=== PATIENT | female | born 1965 | race Caucasian/White ===

== ENCOUNTER 2024-02-15 23:06 | Observation (INO) | payer BC, SELFPAY ==
--- NOTE | ~2024-02-15 | MR_ITS ---
EXAMINATION: MR brain/brain stem wo/w con DATE: 02/16/2024 11:50 INDICATION: Cerebrovascular accident. TECHNIQUE: Magnetic resonance imaging (MRI) of the brain and brainstem was performed without and with 14 mL MultiHance intravenous contrast. COMPARISON: Head CT 02/16/2024 FINDINGS: There is no intracranial hemorrhage, acute infarction, or abnormal intracranial mass lesion . The ventricles are normal in size. The paranasal sinuses are clear. The orbits are normal. The mast oid air cells are normal. IMPRESSION: 1. Normal brain. Reviewed, dictated and finalized at location A. IMPRESSION: 1. Normal brain.
--- NOTE | ~2024-02-15 | XR_ITS ---
Clinical Indication: Dizziness PA and lateral views of the chest: Comparison: None Findings: The lungs are clear, without evidence of focal consolidation or pleural effusion. Cardiome diastinal silhouette is within normal limits. Bones and soft tissues are unremarkable. Impression: Normal chest. Reviewed, dictated and finalized at location . Impression: Normal chest.
--- NOTE | ~2024-02-15 | CT_ITS ---
CT ANGIOGRAM NECK AND HEAD History: Vertigo. Technique: Axial noncontrast imaging of the brain was performed. Serial spiral axial images through t he head and neck were then obtained during arterial phase IV injection of 100 cc of Omnipaque 350. 3- D postprocessing and MIP images were then reconstructed on the remote workstation. Dose reduction andree hnique was used on this scan by utilizing automated exposure control and iterative reconstruction andree hnique. The dose-length product (DLP) was 1684.45 mGy-cm. CTA neck findings: Bilateral vertebral arteries are patent. There is prominent calcified plaque at t he proximal left vertebral with probable focal moderate to high-grade stenosis. Bilateral common simmons tid, internal carotid, and external carotid arteries are patent. No stenosis or large vessel occlusio n. No aneurysm seen. The proximal right internal carotid artery demonstrates 0% stenosis relative to the normal distal artery lumen diameter. The proximal left internal carotid artery demonstrates 0% st enosis relative to the normal distal artery lumen diameter. 5 mm apical pulmonary nodule noted. CTA head findings: Distal vertebral arteries, basilar artery, and posterior cerebral arteries are pat ent. Distal internal carotid arteries, middle cerebral arteries, and anterior cerebral arteries are p atent. No large vessel occlusion or stenosis. No aneurysm. Axial noncontrast imaging of the brain is unremarkable. No acute infarct, intracranial hemorrhage or mass lesion seen. Velazquez-white differentiation is preserved. No mass effect or midline shift. Ventricle s and subarachnoid spaces are unremarkable. Paranasal sinuses and mastoid air cells are clear. Calvar ium intact. Impression: Calcified plaque with focal moderate to high-grade stenosis at the proximal left vertebral artery. No other significant vascular abnormality seen. 5 mm right apical pulmonary nodule. According to Fleischner Society criteria, for a low-risk patient, no further follow up required. For a high-risk patient, consider 12 month follow-up CT. Reviewed, dictated and finalized at location . Impression: Calcified plaque with focal moderate to high-grade stenosis at the proximal lef t vertebral artery. No other significant vascular abnormality seen. 5 mm right apical pulmonary nodule. According to Fleischner Society criteria, f or a low-risk patient, no further follow up required. For a high-risk patient, consider 12 month follow-up CT.
[2024-02-15 23:10] VITALS: BP 178/88; PULSE 67; RESP 17; TEMP 36.3; O2SAT 100
--- NOTE | 2024-02-15 23:13 | ECG_ITS ---
SEE SCANNED COPY FOR CONFIRMED REPORT MTDD
[2024-02-15 23:14] VITALS: PULSE 65
[2024-02-15 23:24] VITALS: BP 159/88; PULSE 66; RESP 12; O2SAT 99
--- NOTE | 2024-02-15 23:25 | ED.DIZZY ---
HPI - Dizziness General Chief Complaint: Dizziness <TREVOR May Last Filed: 02/16/24 03:38> Stated Complaint: stroke <TREVOR May Last Filed: 02/16/24 03:38> Time Seen by Provider: 02/15/24 23:15 <TREVOR May Last Filed: 02/16/24 03:38> History of Present Illness HPI Narrative: 58-year-old female with history of hypertension presents to the emergency department with family at bedside for dizziness. Patient states today around 11:00 a.m. she was doing the dishes when she began to have a spinning sensation. States it felt like she was going to pass out so she lowered herself to the floor. She did not pass out however. States this lasted a while and then self-resolved. States he later went shopping a fall fine, however when she came home she was sitting down and again and felt this overwhelming sensation of the room spinning. She states that is been going on since 3:30 p.m. today and has not resolved, therefore she has come to the ED for further evaluation. She states that this plan and does not feel like movement exacerbates factors. States she feels peg in a matter what position she is in. She states she has had similar symptoms in the past, however they have been much more mild and has not lasted this long. She reports tinnitus and hearing loss that has been present for years, she wears hearing aids. She denies fever, congestion, chest pain or shortness of breath, vision changes, focal numbness or weakness. She is reporting associated nausea, no emesis. <TREVOR May Last Filed: 02/16/24 03:38> Related Data Home Medications: Home Medications Medication Instructions Recorded Confirmed chlorthalidone 25 mg tablet 25 mg PO DAILY 02/16/24 02/16/24 losartan 100 mg tablet 100 mg PO DAILY 02/16/24 02/16/24 <TREVOR May Last Filed: 02/16/24 03:38> Allergies/Adverse Reactions: Allergies Allergy/AdvReac Type Severity Reaction Status Date / Time No Known Allergies Allergy Verified 02/15/24 23:14 <TREVOR May Last Filed: 02/16/24 03:38> Review of Systems Review of Systems: CONSTITUTIONAL: Denies fever, chills, or sweats. EYES: Denies visual changes, redness, or discharge. ENT: See HPI CARDIOVASCULAR: Denies chest pain, palpitations, or edema. RESPIRATORY: Denies cough or dyspnea. GASTROINTESTINAL: Denies abdominal pain, nausea, vomiting, or diarrhea. GENITOURINARY: Denies dysuria or hematuria. SKIN: Denies rash or itching. MUSCULOSKELETAL: Denies back pain, joint pain, or myalgia. NEUROLOGIC: See HPI PSYCHIATRIC: Denies anxiety or depression. <Shannon Mendoza PA-C - Last Filed: 02/16/24 03:38> PMFSH Social History Social History: Social History Smoking status: Never smoker Alcohol intake: never Substance use: never Substance use type: does not use Do You Feel Safe in your Home?: Yes Lack of Transportation: No Lack of Food: Never True Current Housing: I Have Housing Concerned About Future Housing: No Difficulty Paying Gas/Electric Bills: No Difficulty Paying for Meds: No Currently Unemployed: No Education: High School Diploma/GED Difficulty w/ Childcare or Family Care: No Spiritual care concerns: No <Shannon Mendoza PA-C - Last Filed: 02/16/24 03:38> Exam Narrative: GENERAL: Well-appearing, well-nourished, and in no acute distress. HEAD: Normocephalic, atraumatic. EYES: PERRLA and EOMI. Bidirectional horizontal nystagmus with both eyes ENT: Nares clear, no rhinorrhea or epistaxis. Mucous membranes moist. Oropharynx without tonsillar hypertrophy exudate or other lesions. Bilateral TMs are chapman non-bulging, normal canals. No effusions. NECK: Supple. No adenopathy or masses. CHEST: No respiratory distress. Clear to auscultation. No wheezes rales or rhonchi HEART: Regular rate and rhythm.
[2024-02-15 23:33] LABS: Basophils Absolute Auto 0.1 K/mm3 (0.0-0.1); Basophils Percent Auto 0.4 % (0.2-1.2); Eosinophils Absolute Auto 0.3 K/mm3 (0-0.3); Eosinophils Percent Auto 1.9 % (0-4.4); Hematocrit 43.4 % (37.0-47.0); Hemoglobin 14.3 g/dL (12.0-15.0); Immature Granulocyte Absolute 0.03 K/mm3 (0.00-0.031); Immature Granulocyte Percent A 0.2 % (0-0.5); Lymphocytes Absolute Auto 2.71 K/mm3 (0.9-3.2); Lymphocytes Percent Auto 19.6 % (18.3-44.2); Mean Corpuscular HGB Conc 32.9 g/dl (32-36); Mean Corpuscular Hemoglobin 30.1 pg (26-34); Mean Corpuscular Volume 91.4 fl (80-100); Mean Platelet Volume 10.2 fl (7.4-10.4); Monocytes Absolute Auto 0.8 K/mm3 (0.1-0.6); Monocytes Percent Auto 5.4 % (2.6-8.5); Neutrophils Percent Auto 72.5 % (45.5-73.1); Platelet Count Result 192 k/mm3 (150-375); Red Blood Count 4.75 M/mm3 (4.2-5.4); Red Cell Distribution Width 12.7 % (11.5-14.5); White Blood Count 13.8 K/mm3 (4.5-10.0)
[2024-02-15] MEDS: MECLIZINE HCL 25 MG TABLET PO (23:41)
[2024-02-15] MEDS: ONDANSETRON INJ 4 MG/2 ML VIAL IV PUSH (23:41)
[2024-02-15] MEDS: SODIUM CHLORIDE 0.9% IV 1,000 ML 999 ML IV CONT (23:41)
[2024-02-15 23:45] LABS: Alanine Aminotransferase 25 U/L (6-35); Albumin Level 4.5 g/dL (3.5-5.1); Alkaline Phosphatase 121 U/L (38-126); Anion Gap 6 mmol/L (4-12); Aspartate Amino Transferase 33 U/L (14-36); Bilirubin,Total 0.6 mg/dL (0.2-1.3); Blood Urea Nitrogen 28 mg/dL (7-17); Calcium 9.2 mg/dL (8.4-10.2); Carbon Dioxide 29 mmol/L (22-30); Chloride 103 mmol/L (98-107); Estimated CRCL calculation 71 ml/min; Estimated Glomerular Filt Rate > 60; Glucose 121 mg/dL (65-110); Magnesium 2.2 mg/dL (1.6-2.3); Potassium 3.3 mmol/L (3.4-5.0); Sodium 138 mmol/L (137-145)
[2024-02-15 23:50] LABS: Partial Thromboplastin Time 28.2 Seconds (22.3-36.8); Prothrombin Time 13.6 Seconds (11.1-14.7)
[2024-02-15] MEDS: POTASSIUM CHLORIDE 20 MEQ PACKET (FOR LIQUID) PO (23:53)
[2024-02-15 23:59] VITALS: BP 157/86; PULSE 71; RESP 14; O2SAT 98
[2024-02-16] VITALS (12 sets, daily range): BP systolic 123–145; BP diastolic 62–84; PULSE 55–81; RESP 13–18; TEMP 36.4–36.8; O2SAT 96–100; BMI 24.3
--- NOTE | 2024-02-16 | ECHO_ITS ---
Patient Info Name: Sanna Watters Age: 58 years : 1965 Gender: Female HR: 67 bpm BP: 137 / 80 mmHg Heart Rhythm: Sinus Rhythm Technical Quality: Fair Exam Date: 02/16/2024 9:25 AM Exam Location: Echo Lab Patient Status: Inpatient Admit Date: 02/16/2024 Staff Ordering Physician: Quinn Sweet MD Application Counselor: Paolo Mills [facility] Attending Provider: Elsy Browne DO Exam Type: CA echo doppler w bubble study Study Info Indications R55 - Syncope and collapse Complete two-dimensional, color flow and Doppler transthoracic echocardiogram is performed with agitated saline. Contrast/Agitated Saline Contrast/Ag. Saline: Agitated Saline Amount: 14.00 ml IV Access Condition: patent with no signs of infiltration Summary 1. Left ventricular chamber dimension is normal. 2. Left ventricular systolic function is normal, estimated at 65-70%. 3. The left ventricular diastolic function is grade I diastolic dysfunction. 4. Right ventricular systolic function is normal. 5. Intact interatrial septum visualized by color flow and agitated saline imaging. Negative bubble study. 6. No significant valvular disease. Left Ventricle Left ventricular chamber dimension is normal. Left ventricular systolic function is normal, estimated at 65-70%. There is no increased left ventricular wall thickness. The left ventricular diastolic function is grade I diastolic dysfunction. Right Ventricle Right ventricular chamber dimension is normal. Right ventricular systolic function is normal. Left Atria Left atrial chamber dimension is normal. Right Atria Right atrial chamber dimension is normal. Atrial Septum Intact interatrial septum visualized by color flow and agitated saline imaging. Negative bubble study. Aortic Valve The aortic valve is trileaflet. There is no aortic valve stenosis. There is no aortic valve regurgitation. Pulmonic Valve The pulmonic valve is not well visualized. There is trace pulmonic regurgitation. Mitral Valve There is trace mitral valve regurgitation. Tricuspid Valve There is trace tricuspid valve regurgitation. Pericardium/Pleural There is no pericardial effusion. Inferior Vena Cava Normal inferior vena cava with >50% collapse upon inspiration consistent with normal right atrial pressure, 3 mmHg. Aorta The aortic root size at the sinus of Valsalva is normal. Left Ventricular Outflow Tract Name Value Normal LVOT 2D LVOT Diameter 2.1 cm LVOT Doppler LVOT Peak Gradient 5 mmHg LVOT Mean Gradient 3 mmHg LVOT VTI 25 cm LVOT VTI/AV VTI Ratio 0.8 LVOT Stroke Volume 90 ml LVOT CO 5.7 l/min Pulmonic Valve Name Value Normal RVOT Doppler RVOT Peak Gradient 2 mmHg PV Doppler
[2024-02-16 00:20] LABS: Troponin I < 0.012 ng/mL (0.000-0.034)
[2024-02-16] MEDS: diazePAM INJ (*CRX) 10 MG/2 ML SYRINGE 5 MG IV PUSH (01:07)
--- NOTE | 2024-02-16 02:19 | PC.NURSE ---
Patient states she does not feel nauseous and declined Metoclopramide.
[2024-02-16 02:28] LABS: Appearance Urine Clear (Clear); Bacteria Urine None Seen /hpf; Bilirubin Urine Negative (Negative); Blood Urine Negative (Negative); Color Urine Yellow (Yellow); Glucose Urine UA Negative (Negative); Ketones Urine Negative (Negative); Leukocyte Esterase Ur Trace LEU/UL (Negative); Nitrate Urine Negative (Negative); Non Pathogenic Casts 0-2; Protein Urine Negative (Negative); RBC Urine 0-2 /hpf (0-2); Squamous Epithelial Cell Urine None Seen /hpf (Few); Urobilinogen Urine 0.2 mg/dL (<2.0); WBC Urine 0-5 /hpf (0-3)
[2024-02-16 02:35] LABS: Add Urine Microscopic? YES
[2024-02-16] MEDS: ASPIRIN 81 MG CHEWABLE TABLET 324 MG PO (03:43)
[2024-02-16 08:21] LABS: Basophils Percent Auto 0.5 % (0.2-1.2); Eosinophils Absolute Auto 0.3 K/mm3 (0-0.3); Eosinophils Percent Auto 3.4 % (0-4.4); Hematocrit 41.2 % (37.0-47.0); Hemoglobin 13.5 g/dL (12.0-15.0); Immature Granulocyte Absolute 0.01 K/mm3 (0.00-0.031); Immature Granulocyte Percent A 0.1 % (0-0.5); Lymphocytes Absolute Auto 2.61 K/mm3 (0.9-3.2); Lymphocytes Percent Auto 32.7 % (18.3-44.2); Mean Corpuscular HGB Conc 32.8 g/dl (32-36); Mean Corpuscular Hemoglobin 30.3 pg (26-34); Mean Corpuscular Volume 92.4 fl (80-100); Mean Platelet Volume 9.6 fl (7.4-10.4); Monocytes Absolute Auto 0.4 K/mm3 (0.1-0.6); Monocytes Percent Auto 5.4 % (2.6-8.5); Neutrophils Absolute Auto 4.6 K/mm3 (1.3-6.7); Neutrophils Percent Auto 57.9 % (45.5-73.1); Platelet Count Result 179 k/mm3 (150-375); Red Blood Count 4.46 M/mm3 (4.2-5.4); Red Cell Distribution Width 12.7 % (11.5-14.5)
[2024-02-16 08:33] LABS: Anion Gap 4 mmol/L (4-12); Blood Urea Nitrogen 20 mg/dL (7-17); Calcium 9.2 mg/dL (8.4-10.2); Carbon Dioxide 30 mmol/L (22-30); Chloride 106 mmol/L (98-107); Cholesterol 220 mg/dL (0-200); Estimated CRCL calculation 71 ml/min; Estimated Glomerular Filt Rate > 60; Glucose 95 mg/dL (65-110); HDL Direct 83 mg/dL; Potassium 3.7 mmol/L (3.4-5.0); Sodium 140 mmol/L (137-145); Triglycerides 45 mg/dL (<150)
[2024-02-16] MEDS: ASPIRIN 81 MG CHEWABLE TABLET PO (08:39)
[2024-02-16] MEDS: ATORVASTATIN 40 MG TABLET PO (08:39)
[2024-02-16 08:45] LABS: LDL Cholesterol Direct 103 mg/dL
[2024-02-16 08:53] LABS: Vitamin D 25 Hydroxy 32.4 ng/mL
[2024-02-16 09:06] LABS: Thyroid Stimulating Hormone Reflex 0.841 uIU/mL (0.465-4.68)
[2024-02-16 09:27] LABS: Hemoglobin A1C 5.4 % (<5.7)
[2024-02-16 09:28] LABS: Amphetamine Screen Urine Negative (Negative); Barbiturate Screen Urine Negative (Negative); Benzodiazepines Screen Urine Negative (Negative); Cannabinoid Screen Urine Negative (Negative); Cocaine Screen Urine Negative (Negative); Methadone Screen Urine Negative (Negative); Opiate Screen Urine Negative (Negative); Phencyclidine Screen Urine Negative (Negative)
[2024-02-16 09:39] LABS: Folic Acid > 20.0 ng/mL (2.76->20)
--- NOTE | 2024-02-16 11:05 | PM.IMHP ---
H&P: HPI History of Present Illness Date/Time: 02/16/24 11:05 Chief Complaint: Dizziness Narrative: 58yo female with HTN here for dizziness. On the morning of admission while doing dishes, patient had sudden onset room spinning dizziness. She had nausea. She denies fever, chills, headaches, chest pain, palpitations, shortness of breath, cough, vomiting, diarrhea, abdominal pain or vision changes. She has chronic hearing loss and chronic tinnitus but no change. She does wear hearing aids. No dysuria or hematuria. No numbness, tingling or weakness in her extremities. His symptoms lasted about 15 minutes before resolving on their own. She did not take any medications or try any maneuvers to improve her symptoms. She felt tired but was able to go shopping. When she returned home later in the afternoon, she had another onset of dizziness while sitting on the couch. She states the symptoms were identical to the morning symptoms and had recurrent nausea but no other associated symptoms otherwise. Symptoms persisted this time. She took Benadryl without benefit. There has been no new [id number] medications. No new prescription medications. She really drinks alcohol. She is a nonsmoker. No drug use. No history of seizures, strokes, coronary disease, thyroid disease or diabetes. Symptoms are persistent but do seem to improve if she closes her eyes. She can walk but is unsteady. Because of the persistent symptoms, she presented to the emergency room for evaluation. In the emergency room, she was hemodynamically stable. Blood pressure was 178/88. White count was 13.8K but CBC otherwise was normal. PT and PTT were normal. Potassium 3.3, BUN 28 and glucose 121 otherwise CMP was normal. Troponin was negative. Urinalysis was not consistent with UTI. She is given meclizine, Zofran, Valium and aspirin. She was given IV fluids and potassium was replaced. She was admitted for further care. Her symptoms are persistent but lessened since treatment in the ED. Review of Systems Review of Systems: All systems reviewed & are unremarkable except as noted in HPI and below PMFSH Past Medical History Medical History (Updated 02/16/24 @ 11:31 by Quinn Sweet MD) Essential hypertension Hearing loss Migraine Tinnitus Surgical History Surgical History (Updated 02/16/24 @ 11:14 by Quinn Sweet MD) Hx of hand surgery Family History Family History (Updated 02/16/24 @ 11:14 by Quinn Sweet MD) Mother Heart disease Father Cerebrovascular accident Social History Social History (Updated 02/16/24 @ 11:15 by Quinn Sweet MD) Social History: Lifelong nonsmoker. No history of drug use. Rarely drinks alcohol. Lives with her and son. They have a dog. She is full code. She nominates her to be the individual who would make medical decisions for her if she is unable. Smoking status: Never smoker Alcohol intake: never Substance use: never Substance use type: does not use Do You Feel Safe in your Home?: Yes Lack of Transportation: No Lack of Food: Never True Current Housing: I Have Housing Concerned About Future Housing: No Difficulty Paying Gas/Electric Bills: No Difficulty Paying for Meds: No Currently Unemployed: No Education: High School Diploma/GED Difficulty w/ Childcare or Family Care: No Spiritual care concerns: No Meds Home Medications and Allergies Home Medications Medication Instructions Recorded Confirmed Type chlorthalidone 25 mg tablet 25 mg PO DAILY 02/16/24 02/16/24 History losartan 100 mg tablet 100 mg PO DAILY 02/16/24 02/16/24 History Allergies Allergy/AdvReac Type Severity Reaction Status Date / Time No Known Allergies Allergy Verified 02/15/24 23:14 Vital Signs Vital Signs - 24 hr 02/15/24 23:10 02/15/24 23:14 02/15/24 23:24 Temperature 97.4 F L Pulse Rate 67 65 66 Respiratory Rate 17 12 Blood Press
[2024-02-16] MEDS: MECLIZINE HCL 12.5 MG TABLET PO ×2 (16:45→20:47)
[2024-02-17] VITALS (7 sets, daily range): BP systolic 122–141; BP diastolic 60–76; PULSE 56–68; RESP 12–14; TEMP 36.1–36.6; O2SAT 100
[2024-02-17] MEDS: MECLIZINE HCL 12.5 MG TABLET PO ×3 (09:11→17:50)
[2024-02-17] MEDS: ATORVASTATIN 40 MG TABLET PO (09:12)
[2024-02-17] MEDS: ASPIRIN 81 MG CHEWABLE TABLET PO (09:12)
--- NOTE | 2024-02-17 11:02 | WPDNEURCNPN ---
Assessment and Plan Assessment and plan (1) Vertebral artery narrowing: Code(s): I65.09 - Occlusion and stenosis of unspecified vertebral artery Status: Acute (2) TIA (transient ischemic attack): Code(s): G45.9 - Transient cerebral ischemic attack, unspecified Status: Acute Plan recurrent complaints of dizziness and impending sensation of passing out, on clinical examination horizontal endpoint nystagmus on looking to the left side, CTA of the brain with calcified plaque and focal moderate to high-grade stenosis of the proximal left vertebral artery suggesting the posterior circulation involvement even though her MRI is negative for acute stroke. She will benefit from the vascular consult at this particular time she can be started on aspirin and Plavix I discussed with the patient. Consult date: 02/17/24 HPI: Sanna Watters is a 58 year old female Admitted to the hospital through the emergency room with ongoing history of hypertension and he complains of dizziness starting around 11:00 a.m. when she was doing her dishes and developed sudden spinning sensation as she was going to pass out however she did not the whole episode lasted for a while and resolved by itself subsequently when she came from outside and was sitting down she again felt overwhelming sensation of the room spinning and continued to have the sensation with no resolution resulting in her coming to the ER she has had the similar symptoms in the past along with the tinnitus and hearing loss of several years duration she gave no history of any acute symptomatology. Her medications included chlorthalidone 25mg daily, losartan 100mg daily, she is not allergic to any medications, she has never smoker never alcohol user and her initial exam in the emergency room was nonfocal with normal vital signs, normal CBC except WBC 13.8 normal BMP with potassium 3.3, subsequently had the brain MRI brain which was negative. She has had the CTA of the brain while in the ER which has documented the calcified plaque and focal moderate to high-grade stenosis at the proximal left vertebral artery with 5mm right apical pulmonary nodule PMFSH Past Medical History Medical History (Updated 02/17/24 @ 11:11 by Jose Antonio Bear MD) Essential hypertension Hearing loss Migraine Tinnitus Surgical History Surgical History (Updated 02/16/24 @ 11:14 by Quinn Sweet MD) Hx of hand surgery Family History Family History (Updated 02/16/24 @ 11:14 by Quinn Sweet MD) Mother Heart disease Father Cerebrovascular accident Social History Social History (Updated 02/16/24 @ 11:15 by Quinn Sweet MD) Social History: Lifelong nonsmoker. No history of drug use. Rarely drinks alcohol. Lives with her and son. They have a dog. She is full code. She nominates her to be the individual who would make medical decisions for her if she is unable. Smoking status: Never smoker Alcohol intake: never Substance use: never Substance use type: does not use Do You Feel Safe in your Home?: Yes Lack of Transportation: No Lack of Food: Never True Current Housing: I Have Housing Concerned About Future Housing: No Difficulty Paying Gas/Electric Bills: No Difficulty Paying for Meds: No Currently Unemployed: No Education: High School Diploma/GED Difficulty w/ Childcare or Family Care: No Spiritual care concerns: No Meds Home Medications and Allergies Home Medications Medication Instructions Recorded Confirmed Type chlorthalidone 25 mg tablet 25 mg PO DAILY 02/16/24 02/16/24 History losartan 100 mg tablet 100 mg PO DAILY 02/16/24 02/16/24 History Allergies Allergy/AdvReac Type Severity Reaction Status Date / Time No Known Allergies Allergy Verified 02/15/24 23:14 Vital Signs Vital Signs - 24 hr 02/16/24 13:14 02/16/24 13:41 02/16/24 14:00 Temperature 36.7 C Pulse Rate 78 Respiratory Rate 18
[2024-02-17] MEDS: CLOPIDOGREL BISULFATE 75 MG TABLET PO (13:32)
--- NOTE | 2024-02-17 17:16 | PM.DS ---
DS: Admitting Diagnosis Discharge Date February 17, 2024 Admitting Diagnosis Dizziness and room spinning DS: Discharge Diagnosis Discharge Diagnosis (1) Vertigo: Code(s): R42 - Dizziness and giddiness Status: Acute (2) Pulmonary nodule: Code(s): R91.1 - Solitary pulmonary nodule Status: Acute (3) Essential hypertension: Code(s): I10 - Essential (primary) hypertension Status: Acute (4) Vertebral artery narrowing: Code(s): I65.09 - Occlusion and stenosis of unspecified vertebral artery Status: Acute (5) TIA (transient ischemic attack): Code(s): G45.9 - Transient cerebral ischemic attack, unspecified Status: Acute DS: Summary Hospital Course Hospital Course: 58-year-old female with a past medical history dizziness and longstanding tinnitus. He reports the room spinning and dizziness while doing dishes associated with nausea but no vomiting. She denied fever chills headaches chest pain palpitation shortness of breath cough vomiting diarrhea sick contacts abdominal pain or vision changes. Tinnitus was not worse than usual. Symptoms lasted approximately 15 minutes. Again later in the day while sitting on the couch. She took Benadryl without benefit. The patient presented to [facility] and a CT of head was negative as well as MRI brain. A CTA of head and neck did demonstrate calcified plaque at proximal left vertebral artery with probable focal moderate to high-grade stenosis. She was administered Valium aspirin and Zofran and meclizine and she felt that her symptoms greatly resolved. Subsequently she was placed on aspirin Plavix and Lipitor. Dr. Oseguera neurology at [facility] notified and he recommended the patient could be transferred for further evaluation or follow-up in the office. Patient presented these options and she refuse transfer. She has been educated on the importance of taking aspirin and Plavix every day. Per the recommendations of Dr. Oseguera we have also increased her atorvastatin to 80 mg q.h.s.. He is advised to seek out care at neurosurgery center such as [facility] if she has recurrence of symptoms or new symptoms of stroke which she was educated about. Adverse effects, risks, benefits of medications discussed to which the patient understood and agreed to the above plan. She also knows to follow up with her PCP on these matters as well as a pulmonary nodule incidentally found. She has been furnished with the number to Dr. Oseguera/Dr. Darling office so she can call to make an appointment for outpatient follow-up. Acute hypokalemia is replaced and resolved. Home medications losartan and chlorthalidone resumed and repeat BMP magnesium order for 3 days. He also has outpatient therapy ordered. She was also prescribed meclizine to use for mild vertigo symptoms p.r.n.. Time Spent with Patient Time attestation: Total time spent providing and/or coordinating discharge services: Exam Const: General: comfortable and no acute distress Eyes: Pupils: Equal, round and reactive pupils present Neck: Neck: supple Resp: Effort & Inspection: normal respiratory effort Auscultation: clear to auscultation bilaterally Cardio: Rate: regular rate Rhythm: regular rhythm GI: GI Palp: Yes Soft to palpation and No Tenderness to palpation present (GI) Neuro: Motor exam (neuro): 5/5 motor strength present throughout Other: Horizontal nystagmus on left gaze Extrem: General: no edema Discharge Plan Discharge Attending physician on discharge: Zoila Avalos Consulting providers: Johnathan Camara; Shannon Mendoza Discharging Clinician: Zoila Avalos Anticipated Discharge Date/Time: 02/17/24 17:00 Patient Disposition: Home, Self-Care Activity: january shower Diet: as tolerated Discharge Instructions: call to schedule appt with Dr. Darling of [facility] group at [phone] as discussed, if you experience recurrence of sympt
== END 2024-02-17 18:00 | disposition home or self-care (01) ==
LOC: ANHED 02-16 03:01 → ANH3MEDSUR 02-16 14:35
PROVIDERS: Internal Medicine; Student in an Organized Health Care Education/Training Program; Admitting Provider Internal Medicine; Emergency Provider Physician Assistant; PCP Internal Medicine; Visit Provider General Practice
DX: G45.9 Transient cerebral ischemic attack, unspecified (principal); R91.1 Solitary pulmonary nodule; I10 Essential (primary) hypertension; Z79.899 Other long term (current) drug therapy
CPT/HCPCS: 36415; 70496; 70498; 70553; 71046; 80048; 80053; 80061; 80307; 81001; 82306; 82607; 82746; 83036; 83735; 84443; 84484; 85025; 85610; 85730; 93005; 93306; 96361; 96374; 96375; 97161; 97165; 99285; A9270; A9577; G0378; J2405; J3360; J7030; Q9967

== ENCOUNTER 2024-09-16 14:20 | Outpatient (CLI) | payer BC, SELFPAY ==
--- NOTE | ~2024-09-16 | XR_ITS ---
[id number] Ordering provider: Rigo Galindo, History: . RADICULOPATHY . Comparison: None. FINDINGS: VERTEBRAL BODIES: Normal height and alignment. No visible fracture or subluxation. The dens is intact . Degenerative changes of the spine. 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 DISK SPACES: Narrowing of the disc C4-C5, C5-C6, C6-C7 and C7-T1. Multilevel uncovertebral joint oste oarthritic changes. Multilevel facet joint disease. PARASPINOUS SOFT TISSUES: No prevertebral soft tissue swelling. IMPRESSION: No acute osseous abnormality cervical spine. Multilevel degenerative disc disease. Reviewed, dictated and finalized at location A. [employer]
== END 2024-09-16 14:21 | disposition home or self-care (01) ==
PROVIDERS: PCP Internal Medicine; Visit Provider Internal Medicine
DX: M54.12 Radiculopathy, cervical region (principal); M50.30 Other cervical disc degeneration, unspecified cervical region
CPT/HCPCS: 72040

== ENCOUNTER 2024-09-20 01:26 | Emergency (ER) | payer BC, SELFPAY ==
[2024-09-20] VITALS (7 sets, daily range): BP systolic 109–146; BP diastolic 68–74; PULSE 64–86; RESP 13–20; TEMP 36.3–36.4; O2SAT 97–100
--- NOTE | ~2024-09-20 | CT_ITS ---
Non-contrast CT scan of the Abdomen and Pelvis Clinical indication: Flank pain, back pain Technique: 2.5 mm axial scans were obtained through the abdomen and pelvis without intravenous or or al contrast. Axial imaging of the lumbar spine was also performed with sagittal and coronal reformats . Dose reduction technique was used on this scan by utilizing automated exposure control and iterativ e reconstruction technique. The dose-length product (DLP) was 380.79 mGy-cm. Abdomen/pelvis Findings: Images through the lung bases reveal no abnormalities. There is no evidence of renal or ureteral calculi. The kidneys and the ureters are nondilated. Probab le small hyperdense left renal cyst. The liver, spleen, pancreas, gallbladder, and adrenals appear normal. There is no aortic aneurysm. There is no evidence of bowel obstruction. Images through the pelvis were performed. There is no evidence of ascites or lymphadenopathy. Urinary bladder unremarkable. No pelvic mass seen. Lumbar spine findings: There is no acute fracture or subluxation of lumbar spine. Vertebral bodies ma intain normal height and alignment. Intervertebral disc spaces are relatively well-preserved. There are probable mild disc bulges at L2-L3, L3-L4, and L4-L5. No definite canal stenosis identified in the lumbar spine. Probable mild bilateral neural foraminal narrowing at L3-L4. Paravertebral soft tissues are unremarkable.. Impression: No acute abnormalities seen. Probable mild degenerative spondylosis of lumbar spine, as above. Reviewed, dictated and finalized at [facility]. E SUBSTANCE ABUSE Impression: No acute abnormalities seen. Probable mild degenerative spondylosis of lumbar spine, as above.
[2024-09-20 01:46] LABS: Basophils Percent Auto 0.3 % (0.2-1.2); Eosinophils Absolute Auto 0.1 K/mm3 (0-0.3); Eosinophils Percent Auto 0.7 % (0-4.4); Hematocrit 44.1 % (37.0-47.0); Hemoglobin 14.7 g/dL (12.0-15.0); Immature Granulocyte Absolute 0.02 K/mm3 (0.00-0.031); Immature Granulocyte Percent A 0.3 % (0-0.5); Lymphocytes Absolute Auto 1.51 K/mm3 (0.9-3.2); Lymphocytes Percent Auto 19.9 % (18.3-44.2); Mean Corpuscular HGB Conc 33.3 g/dl (32-36); Mean Corpuscular Hemoglobin 30.2 pg (26-34); Mean Corpuscular Volume 90.6 fl (80-100); Mean Platelet Volume 9.8 fl (7.4-10.4); Monocytes Absolute Auto 0.9 K/mm3 (0.1-0.6); Monocytes Percent Auto 11.2 % (2.6-8.5); Neutrophils Absolute Auto 5.2 K/mm3 (1.3-6.7); Neutrophils Percent Auto 67.6 % (45.5-73.1); Platelet Count Result 177 k/mm3 (150-375); Red Blood Count 4.87 M/mm3 (4.2-5.4); Red Cell Distribution Width 13.1 % (11.5-14.5); White Blood Count 7.6 K/mm3 (4.5-10.0)
[2024-09-20 01:58] LABS: Alanine Aminotransferase 46 U/L (6-35); Albumin Level 4.3 g/dL (3.5-5.1); Alkaline Phosphatase 115 U/L (38-126); Anion Gap 7 mmol/L (4-12); Aspartate Amino Transferase 42 U/L (14-36); Bilirubin,Total 0.6 mg/dL (0.2-1.3); Blood Urea Nitrogen 22 mg/dL (7-17); Calcium 9.4 mg/dL (8.4-10.2); Carbon Dioxide 30 mmol/L (22-30); Chloride 97 mmol/L (98-107); Estimated CRCL calculation 62 ml/min; Estimated Glomerular Filt Rate > 60; Glucose 146 mg/dL (65-110); Lipase 104 U/L (23-300); Sodium 134 mmol/L (137-145)
--- NOTE | 2024-09-20 07:51 | ED.BACK ---
HPI - Back Pain/Injury General Chief Complaint: Back Pain/Injury Stated Complaint: back pain and right flank x 2 days Time Seen by Provider: 09/20/24 07:05 Source: patient and RN notes reviewed Mode of arrival: EMS History of Present Illness HPI Narrative: Patient presents initially with report of back/right sided flank pain. She states the pain is worse when she uses her right leg but it otherwise doesn't radiate from her low back. Ibuprofen is not helping. No bladder/bowel incontinence or IV drug use. She felt nauseated with the pain but no vomiting. She thought initially that perhaps she pulled a muscle but she doesn't believe that is the case now. Pain started while seated in a chair 2 days ago. 6/10 in severity. Had acute onset stabbing pain but 2/10 pain at rest. No trauma/injury, dysuria, abdominal pain, cancer, chronic steroids, or fever. No hematuria. She attemptd to get into the bath but pain was too intense and so she laid on the floor. No history of UTI/pyelonephritis, or urolithiasis. No paresthesias. Related Data Home Medications ?Medication ?Instructions ?Recorded ?Confirmed ?Last Taken ?Type chlorthalidone 25 mg tablet 25 mg PO DAILY 02/16/24 02/16/24 Unknown History losartan 100 mg tablet 100 mg PO DAILY 02/16/24 02/16/24 Unknown History Allergies Allergy/AdvReac Type Severity Reaction Status Date / Time No Known Allergies Allergy Verified 02/15/24 23:14 [facility] Past Medical History Medical History Tinnitus Hearing loss Migraine Essential hypertension Surgical History Surgical History Hx of hand surgery Family History Family History (Updated 02/16/24 @ 11:14 by Quinn Sweet MD) Mother Heart disease Father Cerebrovascular accident Social History Social History (Updated 09/20/24 @ 21:33 by Christina You MD) Social History: They have a dog. She is full code. She nominates her to be the individual who would make medical decisions for her if she is unable. Smoking status: Never smoker Alcohol intake: current Alcohol use details: rare Substance use: never Substance use type: does not use Other substance usage details: denies IVDU Do You Feel Safe in your Home?: Yes Lack of Transportation: No Lack of Food: Never True Current Housing: I Have Housing Concerned About Future Housing: No Difficulty Paying Gas/Electric Bills: No Difficulty Paying for Meds: No Currently Unemployed: No Education: High School Diploma/GED Difficulty w/ Childcare or Family Care: No Living arrangements: with family Additional living arrangements comments: Lives with her and son. Spiritual care concerns: No Exam Narrative: GENERAL: Well-appearing, well-nourished, in moderate acute distress during physical exam/movement. Otherwise laying flat on stretcher. HEAD: Normocephalic, atraumatic. EYES: Non injected, non icteric ENT: Nares clear, no rhinorrhea or epistaxis. NECK: Supple. CHEST: Speaking in full sentences. No respiratory distress. HEART: Regular rate and rhythm. . ABDOMEN: Soft, nondistended. EXTREMITIES: No lower extremity edema. Able to move extremities x4 but limited secondary to pain. Straight leg test positive on the right. BACK: Patient able to demonstrate ability to roll onto right side. Mild left paraspinal tenderness at lumbar spine. No bony stepoffs/deformities. SKIN: Warm, dry, no rash. NEURO: No focal deficits. Alert and oriented x3. Sensation intact to gross touch PSYCH: Congruent mood and affect. Course Vital Signs Vital signs: Vital Signs Temperature 97.3 F L 09/20/24 01:27 Pulse Rate 84 09/20/24 01:27 Respiratory Rate 16 09/20/24 01:27 Blood Pressure 118/74 09/20/24 01:27 Pulse Oximetry 99 09/20/24 01:27 Oxygen Delivery Room Air 09/20/24 01:27 Temperature 97.6 F 09/20/24 05:34 Pulse Rate 71 09/20/24 14:50 Respiratory Rate 13 09/20/24 14:50 Blood Pressure 109/74 09/20/24 14:50 Pulse Oximetry 98 09/20/24 14:50 Oxygen Delivery Room Air 09/20/24 01:27 MDM - Back Pain/Injury MDM Narrative Medical decision making narrative: Patient presents intiially with report of back/right flank pain. On exam she does seem to indicate the pain is more left paraspinal and that it otherwise does not radiate but is worsened by movement of her right leg. In the emergency department they are afebrile with vital signs within normal limits. CBC unremarkable. Hyperglycemia without anion gap acidosis. Mild elevations in AST ALT. Sodium corrects slightly to 135 mEq per L in the setting of hyperglycemia. Patient is hypokalemic a potassium at 3.0. Will replete with both oral and IV formulations and obtain magnesium level to see if there is concomitant hypomagnesemia. Back has no deformities, external skin changes, or signs of trauma. No tenderness is noted on palpation of the spinous processes which are midline. Sensation to the lower extremities is normal bilaterally. They do not have any other red flags for fracture, infection (e.g. spinal epidural abscess), or aortic/vascular: Age, no trauma, not on chronic steroids, no cancer, no fever, IV drug use, immunosuppression, abdominal pain, tearing pain, syncope, or urinary symptoms. Straight leg raise test is positive on the right however. Given this, will proceed with imaging at this time. UA without signs of infection. PVR was obtained but it was delayed after the urine was collected which was a quick straight cath insertion given the patient missed the cup while attempting to collect a sample herself earlier during ED visit. No other high risk features to suggest cord compression at this time (no incontinence of bowel or bladder, saddle anesthesia, paresthesias, etc.). Patient given analgesic medication and she does note that it helps although she notes that pain remains present when attempting to move. Given additional analgesic medication and we discussed the role and improtance of multimodal pain management for symptoms to balance rest with maintaining ADLs and performing stretching/strengthening exercises. Will discharge and advised to follow up with PCP and given ED return precautions. Provided Rx for APAP, NSAID, muscle relaxer and topical lidocaine patch. Differential Diagnosis Differential diagnosis: Likely lumbar radiculopathy, sciatica, strain of lumbar region, renal colic, pyelonephritis and discitis Lab Data Attestation: I reviewed the patient's lab results. 09/20/24 01:39 09/20/24 01:39 Labs: Lab Results 09/20/24 09/20/24 09/20/24 Range/Units 01:30 01:39 09:04 WBC 7.6 (4.5-10.0) K/mm3 RBC 4.87 (4.2-5.4) M/mm3 Hgb 14.7 (12.0-15.0) g/dL Hct 44.1 (37.0-47.0) % MCV 90.6 (80-100) fl MCH 30.2 (26-34) pg MCHC 33.3 (32-36) g/dl RDW 13.1 (11.5-14.5) % Plt Count 177 (150-375) k/mm3 MPV 9.8 (7.4-10.4) fl Immature Gran % (Auto) 0.3 (0-0.5) % Neut % (Auto) 67.6 (45.5-73.1) % Lymph % (Auto) 19.9 (18.3-44.2) % Fountain % (Auto) 11.2 H (2.6-8.5) % Eos % (Auto) 0.7 (0-4.4) % Baso % (Auto) 0.3 (0.2-1.2) % Lymph # (Auto) 1.51 (0.9-3.2) K/mm3 Fountain # (Auto) 0.9 H (0.1-0.6) K/mm3 Eos # (Auto) 0.1 (0-0.3) K/mm3 Baso # (Auto) 0.0 (0.0-0.1) K/mm3 Abs Immat Gran (auto) 0.02 (0.00-0.031) K/mm3 Absolute Neuts (auto) 5.2 (1.3-6.7) K/mm3 Absolute Nucleated RBC 0.000 (0.0-0.012) K/mm3 Nucleated RBC % 0.0 (0.0-0.2) % Sodium 134 L (137-145) mmol/L Potassium 3.0 L (3.4-5.0) mmol/L Chloride 97 L (98-107) mmol/L Carbon Dioxide 30 (22-30) mmol/L Anion Gap 7 (4-12) mmol/L BUN 22 H (7-17) mg/dL Creatinine 0.80 (0.7-1.0) mg/dL Estim Creat Clear Calc 62 ml/min Estimated GFR > 60 (59 - ) Glucose 146 H (65-110) mg/dL Calcium 9.4 (8.4-10.2) mg/dL Magnesium 1.9 (1.6-2.3) mg/dL Total Bilirubin 0.6 (0.2-1.3) mg/dL AST 42 H (14-36) U/L ALT 46 H (6-35) U/L Alkaline Phosphatase 115 (38-126) U/L Total Protein 8.0 (6.3-8.2) g/dL Albumin 4.3 (3.5-5.1) g/dL Lipase 104 (23-300) U/L Urine Color Yellow (Yellow) Urine Appearance Clear (Clear) Urine pH 6.5 (5.0-9.0) Ur Specific Wilson 1.016 (1.001-1.035) Urine Protein Negative (Negative) mg/dL Urine Glucose (UA) Negative (Negative) mg/dL Urine Ketones Negative (Negative) mg/dL Ur Blood (Man) Negative (Negative) Urine Nitrate Negative (Negative) Urine Bilirubin Negative (Negative) Urine Urobilinogen 1.0 (<2.0) mg/dL Leukocyte Esterase Rfl Negative (Negative) EN/UL Imaging Data Radiologist's impression: Impressions Miscellaneous CT Procedure 09/20/24 08:37 Impression: No acute abnormalities seen. Probable mild degenerative spondylosis of lumbar spine, as above. Discharge Plan Discharge Clinical Impression: Right flank pain, Hyperglycemia, Elevated SGOT (AST), ALT (SGPT) level raised, Hypokalemia, Spondylosis of lumbar spine, Low back pain Patient Disposition: Home, Self-Care Condition: Stable Instructions: Antibiotic Form, Hypokalemia (ED), Acute Low Back Pain (ED), Flank Pain (ED), Lower Back Exercises (ED), Transaminitis (ED) Additional Instructions: As we discussed, the multimodal pain management strategy is to help you balance rest with maintaining daily activities and movement including the ability to perform stretching exercises. Follow-up with your primary care physician if not improving in 3-5 days. Return to the ER if you have increased pain in your back, you develop lower extremity weakness/numbness/paralysis, you have numbness or tingling in your private parts, or you are unable to control your ability to urinate/stool. Patient Language: Kittitian Prescriptions: New lidocaine 4 % adhesive patch,medicated 1 patch topical DAILY PRN (Reason: pain) Qty: 10 0RF methocarbamol 750 mg tablet 1,500 mg PO HS Qty: 10 0RF ibuprofen 600 mg tablet 600 mg PO TID PRN (Reason: pain) Qty: 30 0RF acetaminophen 500 mg capsule 1,000 mg PO Q6H PRN (Reason: pain) Qty: 30 0RF No Action chlorthalidone 25 mg tablet 25 mg PO DAILY losartan 100 mg tablet 100 mg PO DAILY aspirin [Children's Aspirin] 81 mg Tablet,Chewable 81 mg PO DAILY@0800 Qty: 30 0RF atorvastatin 40 mg Tablet 80 mg PO DAILY Qty: 60 0RF Rx Instructions: Take 80 mg daily. If cannot tolerate due to muscle pain, decreased back to 1 tab per day. Notify primary care physician or neurologist. clopidogrel 75 mg Tablet 75 mg PO QAM Qty: 30 0RF meclizine 12.5 mg tablet 12.5 mg PO TID PRN (Reason: dizziness) Qty: 30 0RF Follow-up/Referrals: Mateo,Rigo Roche MD [Primary Care Provider] - Stand Alone Forms: Work/School Release IP Time of Disposition: 10:44
[2024-09-20] MEDS: POTASSIUM BICARBONATE 25 MEQ TABEF 50 MEQ PO (08:06)
[2024-09-20] MEDS: HYDROmorphone HCL INJ (*CRX) 1 MG/ML SYR 0.5 MG IV PUSH (08:09)
[2024-09-20] MEDS: KCL 20 MEQ/SW 100 ML 100 ML 50 MEQ IVPB (08:28)
--- NOTE | 2024-09-20 08:39 | PC.NURSE ---
pt reports burning to IV site. IV site WNL, no swelling or redness noted. flushes without difficulty. slowed rate of potassium to 25mL/hr. pt states she is unable to use the restroom for urine sample at this time.
[2024-09-20 08:56] LABS: Magnesium 1.9 mg/dL (1.6-2.3)
[2024-09-20 09:12] LABS: Add Urine Microscopic? NO; Appearance Urine Clear (Clear); Bilirubin Urine Negative (Negative); Blood Urine Negative (Negative); Color Urine Yellow (Yellow); Glucose Urine UA Negative (Negative); Ketones Urine Negative (Negative); Leukocyte Esterase Ur Negative LEU/UL (Negative); Nitrate Urine Negative (Negative); Protein Urine Negative (Negative); Specific Grav Ur 1.016 (1.001-1.035); pH Urine 6.5 (5.0-9.0)
[2024-09-20] MEDS: KETOROLAC 15 MG/ML VIAL (*BKC) IV PUSH (09:42)
[2024-09-20] MEDS: diazePAM (*CRX) 2 MG TABLET PO (10:38)
--- OUTSIDE RECORDS SUMMARY | 2024-09-27 02:24 | XMS_ITS | Continuity of Care Document ---
Author Organization [place] [facility] [employer] [facility], [facility] [place] Internal Med [facility] [address] [address] Assessment No assessment recorded. Plan of Treatment Reminders Order Date Submit Date Provider Last Modified By Organization Details Last Modified Time Details Appointments None recorded . Lab CBC w/ auto diff 024 09/05/20 24 [facility], [address] [place], [address], 4 19:40:08 CMP, serum or plasma 024 09/05/20 24 [facility], [address] [place], [address], 4 19:40:07 lipid panel, serum 024 09/05/20 24 [facility], [address] [place], [address], 4 19:40:05 TSH, serum or plasma 024 09/05/20 24 [facility], [address] [place], [address], 4 19:40:10 T4, free, serum 024 09/05/20 24 [facility], [address] [place], [address], 4 19:40:09 Referral None recorded . Procedures None recorded . Surgeries None recorded . Imaging None recorded . Medication Orders None recorded . Patient TargetsNo targets recorded. Patient Instructions Encounter Date Encounter Id Patient Instructions Last Modified By Organization Details Last Modified Time 09/05/2024 [id number] risk assessment* [email or web address] Not availabl e 09/05/2024 16:15:23 INFLUENZA VACCIN E Recommended today, but patient declined Ordered Pa tient will get at local pharmacy/health department TD/TDAP Recommended today, patient declined Ordered Pa tient will get at local pharmacy/health department PNEUMONIA VACCINE Ordered Recommended today, patient declined Patient will get at local pharmacy/health department Recommen ded at age 65 SHINGLES Ordered Recommended today, patient declined Patient will get at local pharmacy/health department MAMMOGRAM: Last Mammogram DEXA SCAN CERVICAL SCREENING/PELVIC EXAMINATION Recommended today, but patient declined COLORECTAL SCREENING: Last Colonoscopy DEPRESSION SCREENING Negative BMI Overweight Appropri ate NUTRITION PHYSICAL ACTIVITY VISION Ordered Recommended today ALCOHOL USE No alcohol use Occasional/Soci al Use TOBACCO USE LUNG CANCER SCREENING Non Smoker-not indicated SEXUALLY ACTIVE HEPATITIS C SCREENING Not indicated GLUCOSE SCREENING LIPID SCREENING [email or web address] Not available 09/05/2024 16:00:51 Adult health examination risk assessment stable. Follow-up for hypertension, hyperlipidemia, cervical radiculopathy clinically stable. Will check blood work consisting of CBC, CMP, lipid, thyroid and vitamin-D level. Will set up for a nerve conduction study of both upper extremities as well as standard x-rays of the cervical spine to see if there is any evidence of any extra cervical ribs. Pending those results may need to consider an MRI of the thoracic outlet and of the neck for further evaluation. Additional Orders - Directives - Recommendations 1. Nerve conduction study both arms concern with possible bilateral thoracic outlet syndrome neurogenic 2. X-ray of cervical spine Follow Up: 4 Months Approximate Date: 01/03/2025 Portions of the record may have been created with voice recognition software. Occasional wrong-word or ? [id number]? substitutions may have occurred due to the inherent limitations of voice recognition software. Read the chart carefully and recognize, using context, where substitutions have occurred. Created: Rigo Galindo M.D. 09.05.2024 03:15 PM [email or web address] Not available 09/05/2024 16:15:10 Reason for Referral None Reported. Results Created Date Observation Date Name Description Value Unit Range Abnormal Flag Note LastModifiedBy Organization Detail LastModifiedTime 09/16/20 24 09/16/2024 XR, cervi lele spine , 2 or 3 view No observ ation record ed. [address] [facility] [address], [place], [address], 09/17/2024 03:55:35 09/17/20 24 09/16/2024 XR, cervi lele spine , 2 or 3 view No observ ation record ed. [address] [facility] [address], [place], [address], 09/17/2024 12:43:27 09/20/20 24 09/20/2024 CT, abdom en + pelvi s, w/o contr ast No observ ation record ed. [place] [id number], [place], [address], 09/20/2024 14:40:34 Result Notes None recorded. Problems Name Problem SNOMED Code Status Onset Date Resolution Date Notes Provider Name and Address Organization Details Recorded Time Foot pain 66366849 Active 2016 [facility] 14:[facility] COVID-19 556734175 Active 2021 [facility] Available [facility] 3 14:49:06 Essential hypertension 00894412 Active 2022 Rigo Galindo MD [address], [place], [address] , [employer] 3 10:34:42 Hypercholeste rolemia 86066778 Active 2023 Rigo Galindo MD [address], [address], [place], [address] , [employer] 4 17:10:40 Vertigo 142127826 Active 2023 Rigo Galindo MD [address], [address], [place], [address] , [employer] 4 17:10:49 [place] ar ischemic vertigo 138082583 Active 2023 Rigo Galindo MD [address], [place], [address] , [facility] [employer] [facility] 4 11:59:15 Hyperlipidemi a 80530103 Active 2023 Rachel Childs CMA null, [place] [facility] [employer] [facility] 4 12:11:51 Cervical radiculopathy 91489933 Active 2023 Rigo Galindo MD [address], [place], [address] , [facility] [employer] [facility] 4 16:07:07 Vitamin D deficiency 70816885 Active 2023 Rigo Galindo MD [address], [place], [address] , [facility] [employer] [facility] 4 16:14:43 Problem Notes None recorded. Medical Equipment None Reported. Medications Name Sig Start Date Stop Date Status Note LastModified by Organization Details LastModified Time losartan 50 mg tablet TAKE 1 TABLET BY MOUTH EVERY DAY 10/26 completed Not Available Not Available Not Available amoxicillin 500 mg capsule 06/27 completed Not Available Not Available Not Available atorvastati n 80 mg tablet TAKE 1 TABLET BY MOUTH EVERY DAY active Not Available Not Available No t Available hydrocodone 5 mg-acetamin ophen 325 mg tablet TK 1 T PO Q 8 H PRN P 06/27 completed Not Available Not Available Not Available Maxalt 10 mg tablet Take by oral route. 06/21 completed Not Available Not Available Not Available meclizine 12.5 mg tablet TAKE 1 TABLET BY MOUTH THREE TIMES DAILY NEEDED FOR DIZZINESS active Not Available Not Available No t Available clopidogrel 75 mg tablet TAKE 1 TABLET BY MOUTH EVERY DAY active Not Available Not Available No t Available chlorthalid one 25 mg tablet TAKE 1 TABLET BY MOUTH EVERY DAY active Not Available Not Available No t Available methylpredn isolone 4 mg tablets in a dose pack TK PO PER PACKAGE INSERT. 10/21 completed Not Available Not Available Not Available losartan 100 mg tablet TAKE 1 TABLET BY MOUTH EVERY DAY active Not Available Not Available No t Available Multivitami n 50 Plus tablet Take 1 tablet every day by oral route. active Not Available Not Available No t Available multivitami n 1 po daily 10/21 completed Not Available Not Available Not Available Xyzal 5 mg tablet Take 1 tablet every day by oral route. 06/21 completed Not Available Not Available Not Available Paxlovid 150 mg-100 mg tablets in a dose pack (Renal Dose) Take by oral route. Take two 150 mg and one 100 mg tablet twice daily for five days 07/07 completed Not Available Not Available Not Available Vitals Date Recorded Body height Body mass index (BMI) Body weight Heart rate Body temperature Oxygen saturation Oxygen saturation in Arterial blood by Pulse oximetry Systolic blood pressure Diastolic blood pressure Provider Name and Address Organization Details Last Updated DateTime 4 170.18 cm 25.8 kg/m2 35800.7 4 g 89 /min 97 [degF] 98 % 98 % 130 mm[Hg] 76 mm[Hg] CAESAR Waterman [place] [facility] [employer] 4 15:53:45 Social History None recorded. Functional Status None recorded. Mental Status None recorded. Family History Nothing Reported Notes:Mother Living 82 years old Father Living 85years old 1 Brothers 1 Living 2 Sisters 2 Living Mother Hx HTN Father HTN,Cholesterol,CS Venous Insufficiency Medical History Condition Response BLINDNESS N NERVE DISEASE N RHEUMATIC FEVER N BLADDER PROBLEMS N KIDNEY STONES N MRSA N OTHER # 1 N POLIO N LUNG DISEASE/DISORDER N HISTORY OF DRUG ABUSE N RADIATION / CHEMOTHERAPY N COPD N Other # 2 N BLOOD DISEASES N EAR OR HEARING PROBLEMS N MUMPS N SHINGLES N DEPRESSION (INCLUDING POST ) N BOWEL PROBLEMS N FAILED BACK SYNDROME N STROKE/TIA N ULCERS N BENIGN PROSTATIC HYPERPLASIA N MEASLES N HYPOTENSION N MYOCARDIAL INFARCTION N OBESITY N GERD/NAUSEA N ANEURYSM N URINARY/BLADDER/KIDNEY PROBLEMS N CORONARY ARTERY DISEASE (CAD) N Do you have Advance directive? N ADDICTION CONCERNS N Impotence N ENDOMETRIOSIS N USE OF BLOOD THINNERS N SKIN PROBLEMS N GASTROINTESTINAL DISORDER N PERIPHERAL VASCULAR DISEASE N MUSCLE,JOINT OR BONE PROBLEMS N GASTROINTESTINAL BLEEDING N BLOOD CLOTS N ASTHMA N CATARACTS N Abdominal Pain N ERECTILE DYSFUNCTION N ARTERIAL INSUFFICIENCY N VARICOSITIES N GI PROBLEMS N Low Testosterone N INFERTILITY N AIDS/HIV N CHEMOTHERAPY / RADIATION N LIVER DISEASE N MALE HYPOGONADISM N HYPERTENSION N Deficiency N TOURETTE'S N ANXIETY DISORDER N BLOOD TRANSFUSION N ANEMIA/BLOOD DISORDER N CHRONIC EAR INFECTIONS N TUBERCULOSIS N GLAUCOMA N FOOT PROBLEM N DIVERTICULITIS N SLEEP APNEA N CHICKENPOX N BACK INJECTIONS N ALLERGIES/HAYFEVER N INFECTIOUS DISEASE N PROSTATE N HEART ARRHYTHMIA N ESRD N INSOMNIA N HIGH CHOLESTEROL / HYPERLIPIDEMIA N EYE PROBLEMS N HYPERTHYROIDISM N PVD N EDEMA N CHRONIC PAIN SYNDROME N HYPOTHYROIDISM N CONSTIPATION N CAROTID BLOCKAGE N BACK / NECK PROBLEMS N HAVE YOU BEEN HOSPITALIZED OR SEEN IN [facility] IN THE PAST YEAR ? N ATHEROSCLEROSIS N BREAST PROBLEMS N DIALYSIS N POLYCYSTIC OVARIES N ECZEMA N OSTEOPOROSIS N ARTHRITIS N NO SIGNIFICANT PAST MEDICAL HISTORY N APPENDICITIS N DIABETES, TYPE N BAD TEETH N VON WILLIBRAND'S DISEASE N ENT N HEARTBURN / REFLUX N GI N AUTISM SPECTRUM DISORDER (ASD) N POST LAMINECTOMY SYNDROME N HEPATITIS / LIVER DISEASE N GOUT N SLEEP DISORDER N ALZHEIMER'S DISEASE N Brain Problems N DEMENTIA N HERPES N SEIZURES/EPILEPSY N HEADACHES/MIGRAINES N VASCULAR DISEASE N PACEMAKER N DIZZINESS N HEART DISEASE/HEART PROBLEMS N KIDNEY DISEASE N MULTIPLE SCLEROSIS N NEUROPSYCHOLOGICAL N CANCER: SPECIFY N CARDIAC ARRHYTHMIA N ATRIAL FIBRILLATION N Gall Stones N PULMONARY EMBOLISM N AUTOIMMUNE DISEASE N Gynecological HistoryNo gynecological history recorded. Obstetrics History GPAL:G 0 P 0 0 0 0 Past Encounters Encounter ID Performer Location Encounter Start Date Encounter Closed Date Diagnosis/Indication Diagnosis SNOMED-CT Code Diagnosis ICD10 Code Diagnosis Note [id number] Rigo Galindo MD [facility] Internal Med [facility] [address] [address] 09/05/2024 15:49:45 09/05/2024 16:19:21 Adult health examination 580726659 Z00.00 Depression screening 171 237965 Z13.31 Essential hypertension 10344255 I10 Hypercholesterolemia 136 77428 E78.00 Cervical radiculopathy 25515734 M54.12 Vitamin D deficiency 347 40636 E55.9 Health Concerns Section Related Observation LastModified by Organization Detai ls LastModified Time None Recorded Concern Status LastModified by Organization Details LastModified Time None Recorded Payers Encounter Date Sequence Insurance Name Policy Number Policy Pérez Covered Member ID Pérez Member ID Guarantor Name 09/05/2024 1 [place] [id number] Austin Watters [id number] Sanna Watters Notes Date Note Type Note Provider Name and Address Organization Details Recorded Time text/html Patient Name: Sanna DuongDate Of Service: Thursday ( 09.05.2024 ): 1965 Age: 59 There has been approximately a 9 lb weight gain since 03/17/2024. This represents approximately a 5.8% change in weight. Weight change attributable to lifestyle changes. Vital Signs:Blood Pressure: Sitting Rt. Arm 130/76Pulse: Sitting 89 /min and RegularRespiratory Rate: 16Height 67 in or 1.7 mWeight 165 lb or 74.8 kgBMI 25.8Temperature: 97 F or 36.1 CPulse Oximetry: 98 % at rest on no oxygen Chief Complaint: Addressed in HPI Problems or conditions discussed in the HPI were the only ones reviewed during the encounter.Only social and family history addressed in the HPI were reviewed during this encounter. Attendant(s): NoneConstitutional and Systemic Symptoms:none Medication Reconciliation: from medication list. History of Present Illness In for a well patient check up. Last well patient evaluation was approximately one year. No interval complaints of any major medical problems. No hx of any chest pain, shortness of breath, nausea, vomiting, diarrhea or constitutional symptoms. Also being followed for other chronically monitored problems.Has Had A Mammogram dueHas Had A Pap Smear already doneImmunizations Up To Date or refuses to takeNo Significant Change In Family HxColonoscopy or Cologuard: not dueFall Risk normalDepression Score: 0PHQ-9 Score [IndicatedHearing normalVision normalReviewed Smoking and Drug HistoryReviewed Immunization HistoryInstructed on importance of weight on diabetes, heart and other diseases aggravated by obesity. #1. Essential Hypertension: Stage: Stage I Interval Neurological Complaints no headaches, dizziness, weakness, visual changes, ataxia, aphasia and apraxia. No shortness of breath, orthopnea or cardiovascular symptoms. No other symptoms related to end organ damage. Pressure has been under excellent control. Currently normal. No other end organ symptoms or findings. Therapy reviewed regarding management of hypertension and includes salt restriction and Medication. #2. Type II Hypercholesterolaemia: Currently taking medication and tolerating well. No interval complaints of any muscle pain or arthralgia. No significant liver changes with medications. Last lipid panel: suboptimal by ATP III guidelines. Therapy reviewed regarding treatment of cholesterol management and include diet and Atorvastatin Calcium. #3. Complaining of bilateral numbness of both arms particularly when lying on the back or lying on the side with one shoulder being down. Does notice occasional problems with the arms going numb when the arms above the head. Has a equivocally positive Adson as well as clavicular sign. No swelling of the arms are noted. There has been no difficulty in ambulation of problems with balance. Denies any history of any other associated neurologic complaints particularly with the lower extremities. May represent some variant of the cervical stenosis and or possible thoracic outlet syndrome. Will need further studies for evaluation.: Active Medication ListAspirin 81 MG CAPSULE One DailyAtorvastatin Calcium 80 MG TABLET One DailyPlavix 75 MG TABLET, FILM COATED One DailyMeclizine 12.5 MG TABLET One DailyLosartan Potassium 100 MG TABLET One DailyChlorthalidone 25 MG TABLET One Daily Social HistorySOCIAL HISTORY:Does not smoke cigarettes. Drinking Hx: < 6 cans of soft drinks per day.Exercise: RegularlySexual Hx: Sexually ActiveOccupation: Office WorkerTravel Hx: [place] Family HistoryFAMILY HISTORY:Mother Living 82 years oldFather Living 85years old1 Brothers 1 Living2 Sisters 2 LivingMother Hx: HTNFather HTN,Cholesterol,CS Venous InsufficiencyMenarche 13 Menopause A0 Rigo Galindo MD [address] [facility], [facility] [address], [place], [address], [facility] [employer] 09/05/2024 16:15:27 OBGyn Episode No OBEpisode recorded.
--- OUTSIDE RECORDS SUMMARY | 2024-09-27 02:24 | XMS_ITS | Data Portability ---
Author Organization [facility] [place], Main Office Address [address] [place] [address] Assessment No assessment recorded. Plan of Treatment Reminders Order Date Submit Date Provider Last Modified By Organization Details Last Modified Time Details Appointments None recorded. Lab CBC w/ auto diff 2022 023 [email or web address] [facility], [address] [place], [address], 12:14:19 CMP, serum or plasma 2022 023 [email or web address] [facility], [address] [place], [address], 12:14:19 lipid panel, serum 2022 023 [id number] [facility], [address] [place], [address], 12:14:19 TSH, serum or plasma 2022 023 [email or web address] [facility], [address] [place], [address], 12:14:19 T4, free, serum 2022 023 [id number] [facility], [address] [place], [address], 3 12:14:19 lipoprotein (A), serum 2022 023 [email or web address] [facility], [address] [place], [address], 3 12:14:20 CBC w/ auto diff 2023 024 [facility], [address] [place], [address], 4 19:40:08 CMP, serum or plasma 2023 024 [facility], [address] [place], [address], 4 19:40:07 lipid panel, serum 2023 024 [facility], [address] [place], [address], 4 19:40:05 TSH, serum or plasma 2023 024 [facility], [address] [place], [address], 19:40:10 T4, free, serum 2023 024 [facility], [address] [place], [address], 19:40:09 Referral None recorded. Procedures None recorded. Surgeries None recorded. Imaging None recorded. Medication Orders losartan 50 mg tablet 2022 023 [email or web address] [facility] #[id number], [address], [place], [id number], 10:42:29 Patient TargetsNo targets recorded. Patient Instructions Encounter Date Encounter Id Patient Instructions Last Modified By Organization Details Last Modified Time 07/07/2023 [id number] Uncontrolled hypertension. Will check blood work consisting of CBC, CMP, lipid, thyroid, lipoprotein a. Start on some losartan 50 mg once daily. EKG performed in the office showed a sinus mechanism with some possible left ventricular hypertrophy but no ST or T-wave changes. Pending the results of the testing may need to consider further evaluation of possible cardiac referral because some associated mild exertional shortness of breath which is likely related to her blood pressure. Will also set up for an echocardiogram to further assess left ventricular function and wall thickness etc.. Standard immunizations of RSV, COVID, influenza and shingles as recommended Portions of the record may have been created with voice recognition software. Occasional wrong-word or ? eawxv-u-ywjj? substitutions may have occurred due to the inherent limitations of voice recognition software. Read the chart carefully and recognize, using context, where substitutions have occurred. [email or web address] Not available 07/07/2023 10:58:51 11/12/2023 [id number] Follow-up hypertension clinically doing well. Does not need any blood work performed at this time. Will check a mammogram and Cologuard test. Continue on current Rx follow-up in six months. Portions of the record may have been created with voice recognition software. Occasional wrong-word or ? nhyyq-q-kuoo? substitutions may have occurred due to the inherent limitations of voice recognition software. Read the chart carefully and recognize, using context, where substitutions have occurred. Cologuard Mammogram [email or web address] Not available 11/12/2023 10:45:26 03/03/2024 [id number] Hypertension hyperlipidemia and vertigo. Will check a the most recent blood work performed at [facility] before making any decisions for his discontinuing any medication. Some of the feeling of fatigue and generalized weakness now may be resulting from the meclizine as well. Will check back in approximately two weeks Orders: 1. Need to get the medical records from [facility] for recent visit for vertigo Next Appointment: 2 Weeks Approximate Date: 03/17/2024 Portions of the record may have been created with voice recognition software. Occasional wrong-word or ? pyxjp-m-lwjp? substitutions may have occurred due to the inherent limitations of voice recognition software. Read the chart carefully and recognize, using context, where substitutions have occurred. [email or web address] Not available 03/03/2024 17:14:48 03/17/2024 [id number] Follow-up VBI, essential hypertension hyperlipidemia all clinically stable. Will continue with current medications at this time. Will try to set up for neurological consult to see whether not the patient may be a candidate for possible stenting of the vertebral artery etc.. Additional Orders and/or Directives: 1. Needs to see Neurology ross for vertebral artery stenosis and persistent vertigo Keep Appointment: [facility] 05 12 2024 09:40 AM [place] Portions of the record may have been created with voice recognition software. Occasional wrong-word or ? jizrm-q-vgec? substitutions may have occurred due to the inherent limitations of voice recognition software. Read the chart carefully and recognize, using context, where substitutions have occurred. Not available 03/17/2024 12:04:00 09/05/2024 [id number] risk assessment* [email or web address] Not availabl e 09/05/2024 16:15:23 INFLUENZA VACCIN [...] SCREENING Not indicated GLUCOSE SCREENING LIPID SCREENING [email or web address] Not available 09/05/2024 16:00:51 Adult health examination [...] voice recognition software. Occasional wrong-word or ? [id number]? substitutions may have occurred due to the inherent limitations of voice recognition software. Read the chart carefully and recognize, using context, where substitutions have occurred. Created: Rigo Galindo M.D. 09.05.2024 03:15 PM [email or web address] Not available 09/05/2024 16:15:10 Reason for Referral None Reported. Results Created Date Observation Date Name Description Value Unit Range Abnormal Flag Note LastModifiedBy Organization Detail LastModifiedTime 07/10/2007/21/2023 LIPID PANEL , STAND TARIQ cholesterol, total 231 mg/dL <200 high Not Available [address], [address], 07/21/2023 20:08:36 07/10/2007/21/2023 LIPID PANEL , STAND TARIQ HDL cholesterol 104 mg/dL > or = 50 normal Not Available [address], [address], 07/21/2023 20:08:36 07/10/2007/21/2023 LIPID PANEL , STAND TARIQ triglyceride s 38 mg/dL <150 normal Not Available [address] [address] [place], [address], 07/21/2023 20:08:36 07/10/2007/21/2023 LIPID PANEL , STAND TARIQ LDL-choleste rol 116 mg/dL _(lele c) high Refer ence range : <100 Roge able range <100 mg/dL for prima ry preve ntion ; <70 mg/dL for patie nts with CHD or diabe tic patie nts with > or = 2 CHD risk facto rs. LDL-C is now calcu lated using the Dorothy n-Hop kins calcu marcella n, which is a valid ated novel ishan terry than the Fried janna equat ion in the estim ation of LDL-C . Dorothy og SS et al. MEKA. 2013; 310(1 9): 2061- 2068 (http ://ed ucati on.Qu estDi agnos tics. com/f aq/FA Q164) Not Available [address] [place], [address], 07/21/2023 20:08:36 07/10/2007/21/2023 LIPID PANEL , STAND TARIQ chol/HDLC ratio 2.2 (calc ) <5.0 normal Not Available [address] [address] [place], [address], 07/21/2023 20:08:36 07/10/2007/21/2023 LIPID PANEL , STAND TARIQ non HDL cholesterol 127 mg/dL _(lele c) <130 normal For patie nts with diabe shaun plus 1 major ASCVD risk facto r, treat ing to a non-H DL-C goal of <100 mg/dL (LDL- C of <70 mg/dL ) is consi heather marquis therbenitez beck c optio n. Not Available [address], [address], 07/21/2023 20:08:36 07/10/2007/21/2023 LIPOP ROTEI N (A) lipoprotein (A) <10 nmol/ L Verif ied by repea t abel sis. Refer ence Range <75 Risk: Optim al <75 Moder ate 75-12 5 High >125 Cardi ovasc ular event risk categ ory cut point s (opti mal, moder ate, high) are based on Angela Hoyos. JACC 2017; 69:69 2-711 . Not Available [address] [facility] [place], [address], 07/21/2023 20:08:37 07/10/20 23 07/21/2023 COMPR EHENS LIZETH METAB OLIC PANEL glucose 96 mg/dL 65-99 normal Fasti ng refer ence inter swapna Not Available [address] [address] [place], [address], 07/21/2023 20:08:38 07/10/20 23 07/21/2023 COMPR EHENS LIZETH METAB OLIC PANEL urea nitrogen (BUN) 23 mg/dL 7-25 normal Not Available [address] [address] [place], [address], 07/21/2023 20:08:38 07/10/2007/21/2023 COMPR EHENS LIZETH METAB OLIC PANEL creatinine 0.73 mg/dL 0.50-1 .03 normal Not Available [address], [address], 07/21/2023 20:08:38 07/10/20 23 07/21/2023 COMPR EHENS LIZETH METAB OLIC PANEL eGFR 95 mL/mi n/1.7 3m2 > or = 60 normal Not Available [address], [address], 07/21/2023 20:08:38 07/10/20 23 07/21/2023 COMPR EHENS LIZETH METAB OLIC PANEL BUN/creatini ne ratio SEE NOTE: (calc ) 6-22 Not Repor jaren: BUN and Creat inine are withi n refer ence range . Not Available [address], [address], 07/21/2023 20:08:38 07/10/20 23 07/21/2023 COMPR EHENS LIZETH METAB OLIC PANEL sodium 140 mmol/ L 135-14 6 normal Not Available [address], [address], 07/21/2023 20:08:38 07/10/20 23 07/21/2023 COMPR EHENS LIZETH METAB OLIC PANEL potassium 4.1 mmol/ L 3.5-5. 3 normal Not Available [address], [address], 07/21/2023 20:08:38 07/10/20 23 07/21/2023 COMPR EHENS LIZETH METAB OLIC PANEL chloride 104 mmol/ L 98-110 normal Not Available [address], [address], 07/21/2023 20:08:38 07/10/20 23 07/21/2023 COMPR EHENS LIZETH METAB OLIC PANEL carbon dioxide 30 mmol/ L 20-32 normal Not Available [address], [address], 07/21/2023 20:08:38 07/10/20 23 07/21/2023 COMPR EHENS LIZETH METAB OLIC PANEL calcium 9.3 mg/dL 8.6-10 .4 normal Not Available [address], [address], 07/21/2023 20:08:38 07/10/20 23 07/21/2023 COMPR EHENS LIZETH METAB OLIC PANEL protein, total 6.9 g/dL 6.1-8. 1 normal Not Available [address], [address], 07/21/2023 20:08:38 07/10/20 23 07/21/2023 COMPR EHENS LIZETH METAB OLIC PANEL albumin 4.4 g/dL 3.6-5. 1 normal Not Available [address], [address], 07/21/2023 20:08:38 07/10/20 23 07/21/2023 COMPR EHENS LIZETH METAB OLIC PANEL globulin 2.5 g/dL_ (calc ) 1.9-3. 7 normal Not Available [address], [address], 07/21/2023 20:08:38 07/10/2007/21/2023 COMPR EHENS LIZETH METAB OLIC PANEL albumin/glob ulin ratio 1.8 (calc ) 1.0-2. 5 normal Not Available [address], [address], 07/21/2023 20:08:38 07/10/2007/21/2023 COMPR EHENS LIZETH METAB OLIC PANEL bilirubin, total 0.7 mg/dL 0.2-1. 2 normal Not Available [address], [address], 07/21/2023 20:08:38 07/10/20 23 07/21/2023 COMPR EHENS LIZETH METAB OLIC PANEL alkaline phosphatase 107 U/L 37-153 normal Not Available [facility] [address], [address], 07/21/2023 20:08:38 07/10/2007/21/2023 COMPR EHENS LIZETH METAB OLIC PANEL AST 15 U/L 10-35 normal Not Available [address], [address], 07/21/2023 20:08:38 07/10/2007/21/2023 COMPR EHENS LIZETH METAB OLIC PANEL ALT 12 U/L 6-29 normal Not Available [address], [address], 07/21/2023 20:08:38 07/10/20 23 07/21/2023 CBC (INCL UDES DIFF/ PLT) white blood cell count 5.8 thous and/u L 3.8-10 .8 normal Not Available [address], [address], 07/21/2023 20:08:39 07/10/2007/21/2023 CBC (INCL UDES DIFF/ PLT) red blood cell count 4.55 ana maria on/uL 3.80-5 .10 normal Not Available [address], [address], 07/21/2023 20:08:39 07/10/20 23 07/21/2023 CBC (INCL UDES DIFF/ PLT) hemoglobin 14.0 g/dL 11.7-1 5.5 normal Not Available [address], [address], 07/21/2023 20:08:39 07/10/2007/21/2023 CBC (INCL UDES DIFF/ PLT) hematocrit 42.0 % 35.0-4 5.0 normal Not Available [address], [address], 07/21/2023 20:08:39 07/10/2007/21/2023 CBC (INCL UDES DIFF/ PLT) MCV 92.3 fL 80.0-1 00.0 normal Not Available [facility] [address], [address], 07/21/2023 20:08:39 07/10/2007/21/2023 CBC (INCL UDES DIFF/ PLT) MCH 30.8 pg 27.0-3 3.0 normal Not Available [address], [address], 07/21/2023 20:08:39 07/10/2007/21/2023 CBC (INCL UDES DIFF/ PLT) MCHC 33.3 g/dL 32.0-3 6.0 normal Not Available [address], [address], 07/21/2023 20:08:39 07/10/2007/21/2023 CBC (INCL UDES DIFF/ PLT) RDW 12.1 % 11.0-1 5.0 normal Not Available [address], [address], 07/21/2023 20:08:39 07/10/2007/21/2023 CBC (INCL UDES DIFF/ PLT) platelet count 181 thous and/u L 140-40 0 normal Not Available [address], [address], 07/21/2023 20:08:39 07/10/2007/21/2023 CBC (INCL UDES DIFF/ PLT) MPV 10.6 fL 7.5-12 .5 normal Not Available [address], [address], 07/21/2023 20:08:39 07/10/2007/21/2023 CBC (INCL UDES DIFF/ PLT) absolute neutrophils 2877 cells /uL 1500-7 800 normal Not Available [address], [address], 07/21/2023 20:08:39 07/10/2007/21/2023 CBC (INCL UDES DIFF/ PLT) absolute lymphocytes 2192 cells /uL 850-39 00 normal Not Available [address], [address], 07/21/2023 20:08:39 07/10/2007/21/2023 CBC (INCL UDES DIFF/ PLT) absolute monocytes 400 cells /uL 200-95 0 normal Not Available [address], [address], 07/21/2023 20:08:39 07/10/2007/21/2023 CBC (INCL UDES DIFF/ PLT) absolute eosinophils 290 cells /uL 15-500 normal Not Available [address], [address], 07/21/2023 20:08:39 07/10/2007/21/2023 CBC (INCL UDES DIFF/ PLT) absolute basophils 41 cells /uL 0-200 normal Not Available [address], [address], 07/21/2023 20:08:39 07/10/20 23 07/21/2023 CBC (INCL UDES DIFF/ PLT) neutrophils 49.6 % normal Not Available [address], [address], 07/21/2023 20:08:39 07/10/20 23 07/21/2023 CBC (INCL UDES DIFF/ PLT) lymphocytes 37.8 % normal Not Available [address], [address], 07/21/2023 20:08:39 07/10/20 23 07/21/2023 CBC (INCL UDES DIFF/ PLT) monocytes 6.9 % normal Not Available [address], [address], 07/21/2023 20:08:39 07/10/2007/21/2023 CBC (INCL UDES DIFF/ PLT) eosinophils 5.0 % normal Not Available [address], [address], 07/21/2023 20:08:39 07/10/2007/21/2023 CBC (INCL UDES DIFF/ PLT) basophils 0.7 % normal Not Available [address], [address], 07/21/2023 20:08:39 07/10/2007/21/2023 T4, FREE T4, free 1.1 NG/dL 0.8-1. 8 normal Not Available [address], [address], 07/21/2023 20:08:40 07/10/2007/21/2023 TSH TSH 1.65 mIU/L 0.40-4 .50 normal Not Available [address], [address], 07/21/2023 20:08:41 11/25/19 24 11/25/2023 COLOG UARD cologuard result reportable NEGATI VE negati ve normal NEGAT LIZETH TEST RESUL T. A negat lizeth Colog uard resul t indic ates a low likel ihood that a color ectal cance r (CRC) or advan fabiola adeno ma (chrissy omato us polyp s with more advan fabiola pre-m align ant featu res) is prese nt. The chanc e that a perso n with a negat lizeth Colog uard test has a color ectal cance r is less than 1 in 1500 (nega tive predi ctive value >99.9 %) or has an advan fabiola adeno ma is less than 5.3% (nega tive predi ctive value 94.7% ). These data are based on a prosp ectiv e cross -sect ional study of 10,00 0 indiv idual s at [facility] risk for color ectal cance r who were scree sahil with both Colog uard and colon oscop y. (Alyssa Roche et al, N Engl J Med 2014; 370(1 4):12 86-12 97) The haylie l value (refe rence range ) for this assay is negat lizeth. COLOG UARD RE-SC REESHEKHAR NG RECOM MENDA TION: Perio dic color ectal cance r scree wanda is an impor tant part of preve ntive healt hcare for asymp tomat ic indiv idual s at [facility] risk for color ectal cance r. Follo wing a negat lizeth Colog uard resul t, the Ameri can Cance r Socie ty and U.S. Multi -Soci ety Task Force scree wanda guide lines recom mend a Colog uard re-sc reeshekhar ng inter swapna of 3 years . Refer ences : Ameri can Cance r Socie ty Guide line for Color ectal Cance r Scree wanda: https ://ww w.can cer.o rg/ca ncer/ colon -rect al-ca ncer/ detec tion- diagn osis- stagi ng/ac s-rec ommen datio ns.ht ml.; Alfredo BLANC, Jj POLLOCK, Francesco ROBERTS, Color ectal Cance r Scree wanda: Recom menda tions for Physi cians and Patie nts from the U.S. Multi -Soci ety Task Force on Color ectal Cance r Scree wanda , Am J Gastr oente rolog y 2017; 112:1 016-1 030. TEST DESCR IPTIO N: Cadwell site algor ithmi c abel sis of stool DNA-b peter gonzales with hemog lobin immun oassa y. Quant itati ve value s of indiv idual bioma rkers are not repor table and are not assoc iated with indiv idual bioma rker resul t refer ence range s. Colog uard is inten ded for color ectal cance r scree wanda of adult s of eithe r sex, 45 years or older , who are at [facility] for color ectal cance r (CRC) . Colog uard has been appro tamar for use by the U.S. FDA. The perfo rmanc e of Colog uard was estab lishe d in a cross secti onal study of [facility] adult s aged 50-84 . Colog uard perfo rmanc e in patie nts ages 45 to 49 years was estim ated by sub-g roup abel sis of near- age group s. Colon oscop ies perfo rmed for a posit lizeth resul t may find as the most clini contreras signi nadine espana lesio n: color ectal cance r [4.0% ], advan fabiola adeno ma (incl uding sessi le daryrn jaren polyp s great er than or equal to 1cm diame ter) [20%] or non- advan fabiola adeno ma [31%] ; or no color ectal neopl alem [45%] . These estim ates are deriv ed from a prosp ectiv e cross -sect ional scree wanda study of ,00 0 indiv idual s at [facility] risk for color ectal cance r who were scree sahil with both Colog uard and colon oscop y. (Alyssa Brenner al, N Engl J Med 2014; 370(1 4):12 86-12 97.) Colog uard may produ ce a false negat lizeth or false posit lizeth resul t (no color ectal cance r or preca ncero us polyp prese nt at colon oscop y follo w up). A negat lizeth Colog uard test resul t does not guara ntee the absen ce of CRC or advan fabiola adeno ma (pre- cance r). The curre nt Colog uard scree wanda inter swapna is every 3 years . (Ammohan ican Cance r Socie ty and U.S. Multi -Soci ety Task Force ). Colog uard perfo rmanc e data in a 10,00 0 patie nt pivot al study using colon oscop y as the refer ence metho d can be acces sed at the follo wing locat ion: www.e xactl abs.c om/re sults . Addit ional descr iptio n of the Colog uard test proce ss, warni ngs and preca ution s can be found at www.c ologu tariq.c om. Not Available [facility] (Cologuard Orders Only) [address], [place], [address], 12/03/2023 07:16:42 09/07/20 24 09/07/2024 LIPID PANEL , STAND TARIQ cholesterol, total 186 mg/dL <200 normal Not Available [employer] [facility] [address] [place], [address], 09/07/2024 19:40:05 09/07/20 24 09/07/2024 LIPID PANEL , STAND TARIQ HDL cholesterol 97 mg/dL > or = 50 normal Not Available [facility] [address] [place], [address], 09/07/2024 19:40:05 09/07/20 24 09/07/2024 LIPID PANEL , STAND TARIQ triglyceride s 67 mg/dL <150 normal Not Available [employer] [facility] [address] [place], [address], 09/07/2024 19:40:05 09/07/20 24 09/07/2024 LIPID PANEL , STAND TARIQ LDL-choleste rol 75 mg/dL _(lele c) normal Refer ence range : <100 Roge able range <100 mg/dL for prima ry preve ntion ; <70 mg/dL for patie nts with CHD or diabe tic patie nts with > or = 2 CHD risk facto rs. LDL-C is now calcu lated using the Dorothy n-Hop kins laurau marcella n, which is a valid ated novel metho d provi ding shari r accur acy than the Fried janna equat ion in the estim ation of LDL-C . Dorothy og SS et al. MEKA. 2013; 310(1 9): 2061- 2068 (http ://ed ucati on.Qu estDi ByteLight. com/f aq/FA Q164) Not Available [address] [address] [place], [address], 09/07/2024 19:40:05 09/07/20 24 09/07/2024 LIPID PANEL , STAND TARIQ chol/HDLC ratio 1.9 (calc ) <5.0 normal Not Available [address], [address], 09/07/2024 19:40:05 09/07/20 24 09/07/2024 LIPID PANEL , STAND TARIQ non HDL cholesterol 89 mg/dL _(lele c) <130 normal For patie nts with diabe shaun plus 1 major ASCVD risk facto r, treat ing to a non-H DL-C goal of <100 mg/dL (LDL- C of <70 mg/dL ) is consi arnoldod a allena kiran c optio n. Not Available [address] [address] [place], [address], 09/07/2024 19:40:05 09/07/20 24 09/07/2024 COMPR EHENS LIZETH METAB OLIC PANEL glucose 91 mg/dL 65-99 normal Fasti ng refer ence inter swapna Not Available [facility] [address] [address] [place], [address], 09/07/2024 19:40:07 09/07/20 24 09/07/2024 COMPR EHENS LIZETH METAB OLIC PANEL urea nitrogen (BUN) 20 mg/dL 7-25 normal Not Available [address], [address], 09/07/2024 19:40:07 09/07/20 24 09/07/2024 COMPR EHENS LIZETH METAB OLIC PANEL creatinine 0.85 mg/dL 0.50-1 .03 normal Not Available [address], [address], 09/07/2024 19:40:07 09/07/20 24 09/07/2024 COMPR EHENS LIZETH METAB OLIC PANEL eGFR 79 mL/mi n/1.7 3m2 > or = 60 normal Not Available [address], [address], 09/07/2024 19:40:07 09/07/20 24 09/07/2024 COMPR EHENS LIZETH METAB OLIC PANEL BUN/creatini ne ratio SEE NOTE: (calc ) 6-22 Not Repor jaren: BUN and Creat inine are withi n refer ence range . Not Available [address], [address], 09/07/2024 19:40:07 09/07/20 24 09/07/2024 COMPR EHENS LIZETH METAB OLIC PANEL sodium 137 mmol/ L 135-14 6 normal Not Available [address], [address], 09/07/2024 19:40:07 09/07/20 24 09/07/2024 COMPR EHENS LIZETH METAB OLIC PANEL potassium 3.6 mmol/ L 3.5-5. 3 normal Not Available [address], [address], 09/07/2024 19:40:07 09/07/20 24 09/07/2024 COMPR EHENS LIZETH METAB OLIC PANEL chloride 98 mmol/ L 98-110 normal Not Available [address] [place], [address], 09/07/2024 19:40:07 09/07/20 24 09/07/2024 COMPR EHENS LIZETH METAB OLIC PANEL carbon dioxide 30 mmol/ L 20-32 normal Not Available [address], [address], 09/07/2024 19:40:07 09/07/20 24 09/07/2024 COMPR EHENS LIZETH METAB OLIC PANEL calcium 10.0 mg/dL 8.6-10 .4 normal Not Available [address], [address], 09/07/2024 19:40:07 09/07/20 24 09/07/2024 COMPR EHENS LIZETH METAB OLIC PANEL protein, total 7.2 g/dL 6.1-8. 1 normal Not Available [address], [address], 09/07/2024 19:40:07 09/07/20 24 09/07/2024 COMPR EHENS LIZETH METAB OLIC PANEL albumin 4.5 g/dL 3.6-5. 1 normal Not Available [address], [address], 09/07/2024 19:40:07 09/07/20 24 09/07/2024 COMPR EHENS LIZETH METAB OLIC PANEL globulin 2.7 g/dL_ (calc ) 1.9-3. 7 normal Not Available [address], [address], 09/07/2024 19:40:07 09/07/20 24 09/07/2024 COMPR EHENS LIZETH METAB OLIC PANEL albumin/glob ulin ratio 1.7 (calc ) 1.0-2. 5 normal Not Available [address], [address], 09/07/2024 19:40:07 09/07/20 24 09/07/2024 COMPR EHENS LIZETH METAB OLIC PANEL bilirubin, total 1.0 mg/dL 0.2-1. 2 normal Not Available [address], [address], 09/07/2024 19:40:07 09/07/20 24 09/07/2024 COMPR EHENS LIZETH METAB OLIC PANEL alkaline phosphatase 102 U/L 37-153 normal Not Available [facility] [address] [address] [place], [address], 09/07/2024 19:40:07 09/07/20 24 09/07/2024 COMPR EHENS LIZETH METAB OLIC PANEL AST 33 U/L 10-35 normal Not Available [address], [address], 09/07/2024 19:40:07 09/07/20 24 09/07/2024 COMPR EHENS LIZETH METAB OLIC PANEL ALT 27 U/L 6-29 normal Not Available [address], [address], 09/07/2024 19:40:07 09/07/20 24 09/07/2024 CBC (INCL UDES DIFF/ PLT) white blood cell count 7.1 thous and/u L 3.8-10 .8 normal Not Available [address], [address], 09/07/2024 19:40:08 09/07/20 24 09/07/2024 CBC (INCL UDES DIFF/ PLT) red blood cell count 4.86 ana maria on/uL 3.80-5 .10 normal Not Available [address], [address], 09/07/2024 19:40:08 09/07/20 24 09/07/2024 CBC (INCL UDES DIFF/ PLT) hemoglobin 14.7 g/dL 11.7-1 5.5 normal Not Available [address], [address], 09/07/2024 19:40:08 09/07/20 24 09/07/2024 CBC (INCL UDES DIFF/ PLT) hematocrit 46.2 % 35.0-4 5.0 high Not Available [address], [address], 09/07/2024 19:40:08 09/07/20 24 09/07/2024 CBC (INCL UDES DIFF/ PLT) MCV 95.1 fL 80.0-1 00.0 normal Not Available [address], [address], 09/07/2024 19:40:08 09/07/20 24 09/07/2024 CBC (INCL UDES DIFF/ PLT) MCH 30.2 pg 27.0-3 3.0 normal Not Available [address], [address], 09/07/2024 19:40:08 09/07/20 24 09/07/2024 CBC (INCL UDES DIFF/ PLT) MCHC 31.8 g/dL 32.0-3 6.0 low For adult s, a sligh t decre ase in the calcu lated MCHC value (in the range of 30 to 32 g/dL) is most likel y not clini contreras signi nadine t; aditi er, it shoul d be inter prete d with cauti on in corre latio n with other red cell angel eters and the patie nt's clini lele condi tion. Not Available [address], [address], 09/07/2024 19:40:08 09/07/20 24 09/07/2024 CBC (INCL UDES DIFF/ PLT) RDW 12.2 % 11.0-1 5.0 normal Not Available [address], [address], 09/07/2024 19:40:08 09/07/20 24 09/07/2024 CBC (INCL UDES DIFF/ PLT) platelet count 198 thous and/u L 140-40 0 normal Not Available [address], [address], 09/07/2024 19:40:08 09/07/20 24 09/07/2024 CBC (INCL UDES DIFF/ PLT) MPV 10.6 fL 7.5-12 .5 normal Not Available [address], [address], 09/07/2024 19:40:08 09/07/20 24 09/07/2024 CBC (INCL UDES DIFF/ PLT) absolute neutrophils 3507 cells /uL 1500-7 800 normal Not Available [address], [address], 09/07/2024 19:40:08 09/07/20 24 09/07/2024 CBC (INCL UDES DIFF/ PLT) absolute lymphocytes 2584 cells /uL 850-39 00 normal Not Available [address], [address], 09/07/2024 19:40:08 09/07/20 24 09/07/2024 CBC (INCL UDES DIFF/ PLT) absolute monocytes 582 cells /uL 200-95 0 normal Not Available [address], [address], 09/07/2024 19:40:08 09/07/20 24 09/07/2024 CBC (INCL UDES DIFF/ PLT) absolute eosinophils 376 cells /uL 15-500 normal Not Available [address], [address], 09/07/2024 19:40:08 09/07/20 24 09/07/2024 CBC (INCL UDES DIFF/ PLT) absolute basophils 50 cells /uL 0-200 normal Not Available [address], [address], 09/07/2024 19:40:08 09/07/20 24 09/07/2024 CBC (INCL UDES DIFF/ PLT) neutrophils 49.4 % normal Not Available [address], [address], 09/07/2024 19:40:08 09/07/20 24 09/07/2024 CBC (INCL UDES DIFF/ PLT) lymphocytes 36.4 % normal Not Available [address], [address], 09/07/2024 19:40:08 09/07/20 24 09/07/2024 CBC (INCL UDES DIFF/ PLT) monocytes 8.2 % normal Not Available [address], [address], 09/07/2024 19:40:08 09/07/20 24 09/07/2024 CBC (INCL UDES DIFF/ PLT) eosinophils 5.3 % normal Not Available [address], [address], 09/07/2024 19:40:08 09/07/20 24 09/07/2024 CBC (INCL UDES DIFF/ PLT) basophils 0.7 % normal Not Available [address], [address], 09/07/2024 19:40:08 09/07/20 24 09/07/2024 T4, FREE T4, free 1.1 NG/dL 0.8-1. 8 normal Not Available [address], [address], 09/07/2024 19:40:09 09/07/20 24 09/07/2024 TSH TSH 1.76 mIU/L 0.40-4 .50 normal Not Available [facility] [address], [place], [address], 09/07/2024 19:40:10 03/10/20 24 02/14/2024 CT, angio gram, head, w/ contr ast No observ ation record ed. [place] [address], [place], [address], 03/10/2024 15:19:08 09/16/20 24 09/16/2024 XR, cervi lele spine , 2 or 3 view No observ ation record ed. [address], [place], [address], 09/17/2024 03:55:35 09/17/20 24 09/16/2024 XR, cervi lele spine , 2 or 3 view No observ ation record ed. [address], [place], [address], 09/17/2024 12:43:27 09/20/20 24 09/20/2024 CT, abdom en + pelvi s, w/o contr ast No observ ation record ed. [place] [address], [place], [address], 09/20/2024 14:40:34 Result Notes None recorded. Problems Name Problem SNOMED Code Status Onset Date Resolution Date Notes Provider Name and Address Organization Details Recorded Time Foot pain 01734868 Active 2016 Not Available [facility] 3 14:49:06 COVID-19 672871801 Active 2021 Not Available [employer] 3 14:49:06 Essential hypertension 79928491 Active 2022 Rigo Galindo MD [address], [place], [address] , [facility] 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 Active 2023 Rigo Galindo MD [address], [address], [place], [address] , [facility] 4 11:59:15 Hyperlipidemi a 10552878 Active 2023 Rachel Childs CMA null, [place] [facility] [place] [facility] 4 12:11:51 Cervical radiculopathy 80949117 Active 2023 Rigo Galindo MD [address], [address], [place], [address] , [facility] 4 16:07:07 Vitamin D deficiency 65302220 Active 2023 Rigo Galindo MD [address], [address], [place], [address] , [facility] [employer] [facility] 4 16:14:43 Problem Notes None recorded. Procedures Surgical History None recorded. Imaging Results Imaging Date Name Status LastModified by [facility] Details LastModified Time 02/14/2024 CT, angiogram, head, w/ contrast completed [address], [place], [address], 03/10/2024 15:19:08 09/16/2024 XR, cervical spine, 2 or 3 view completed [address], [place], [address], 09/17/2024 03:55:35 09/16/2024 XR, cervical spine, 2 or 3 view completed [address] [facility] [address], [place], [address], 09/17/2024 12:43:27 09/20/2024 CT, abdomen + pelvis, w/o contrast completed [address], [place], [address], 09/20/2024 14:40:34 Procedure Notes None recorded. Medical Equipment None Reported. [...] and Address Organization Details Last Updated DateTime 3 170.18 cm 22.1 kg/m2 79535.5 2 g 73 /min 97 [degF] 97 % 97 % 182 mm[Hg] 100 mm[Hg] Smita Martino [facility] [employer] [facility] 3 10:30:14 Date Recorded Body height Body mass index (BMI) Body weight Heart rate Body temperature Oxygen saturation Oxygen saturation in Arterial blood by Pulse oximetry Systolic blood pressure Diastolic blood pressure Provider Name and Address Organization Details Last Updated DateTime 4 170.18 cm 23.5 kg/m2 32388.8 6 g 76 /min 97.2 [degF] 99 % 99 % 128 mm[Hg] 82 mm[Hg] Georgina Ford [employer] [facility] [employer] [facility] 4 10:39:03 Date Recorded Body height Body mass index (BMI) Body weight Heart rate Body temperature Oxygen saturation Oxygen saturation in Arterial blood by Pulse oximetry Systolic blood pressure Diastolic blood pressure Provider Name and Address Organization Details Last Updated DateTime 4 170.18 cm 23.8 kg/m2 07040.0 4 g 81 /min 97.2 [degF] 98 % 98 % 122 mm[Hg] 82 mm[Hg] CAESAR Waterman [place] [employer] [facility] [employer] [facility] 4 17:05:02 Date Recorded Body height Body mass index (BMI) Body weight Heart rate Body temperature Oxygen saturation Oxygen saturation in Arterial blood by Pulse oximetry Systolic blood pressure Diastolic blood pressure Provider Name and Address Organization Details Last Updated DateTime 4 170.18 cm 24.4 kg/m2 62402.4 1 g 78 /min 97.9 [degF] 98 % 98 % 118 mm[Hg] 74 mm[Hg] CAESAR Waterman [facility] [employer] [facility] 4 11:50:41 Date Recorded Body height Body mass index (BMI) Body weight Heart rate Body temperature Oxygen saturation Oxygen saturation in Arterial blood by Pulse oximetry Systolic blood pressure Diastolic blood pressure Provider Name and Address Organization Details Last Updated DateTime 4 170.18 cm 25.8 kg/m2 48187.7 4 g 89 /min 97 [degF] 98 % 98 % 130 mm[Hg] 76 mm[Hg] CAESAR Waterman [place] [employer] [facility] 4 15:53:45 Social History None recorded. Functional Status None recorded. Mental Status None recorded. Family History Nothing Reported Notes:Mother Living 82 years old Father Living 85years old 1 Brothers 1 Living 2 Sisters 2 Living Mother Hx HTN Father HTN,Cholesterol,CS Venous Insufficiency Medical History Condition Response NERVE DISEASE N BLINDNESS N RHEUMATIC FEVER N KIDNEY STONES N BLADDER PROBLEMS N MRSA N OTHER # 1 N POLIO N LUNG DISEASE/DISORDER N HISTORY OF DRUG ABUSE N COPD N RADIATION / CHEMOTHERAPY N Other # 2 N BLOOD DISEASES [...] DIVERTICULITIS N SLEEP APNEA N CHICKENPOX N ALLERGIES/HAYFEVER N BACK INJECTIONS N INFECTIOUS DISEASE N PROSTATE N HEART ARRHYTHMIA N ESRD N INSOMNIA N HIGH CHOLESTEROL / HYPERLIPIDEMIA N EYE PROBLEMS N HYPERTHYROIDISM N PVD N EDEMA N CHRONIC PAIN SYNDROME N HYPOTHYROIDISM N CAROTID BLOCKAGE N CONSTIPATION N BACK / NECK PROBLEMS N HAVE YOU BEEN HOSPITALIZED OR SEEN IN [facility] IN THE PAST YEAR ? N ATHEROSCLEROSIS [...] SNOMED-CT Code Diagnosis ICD10 Code Diagnosis Note [id number] Rigo Galindo MD [facility] Internal Med [place] [address] [facility] [place] [address] 07/07/2023 10:27:40 07/07/2023 11:02:51 Essential hypertension 88689167 I10 [id number] Rigo Galindo MD [facility] Internal Med [facility] [address] [address] 11/12/2023 10:32:49 11/12/2023 10:50:44 Essential hypertension 94221243 I10 [id number] Rigo Galindo MD [facility] Internal Med [place] [address] [facility] [place] [address] 03/03/2024 16:59:45 03/03/2024 17:21:39 Essential hypertension 91727171 I10 Hypercholesterolemia 136 22779 E78.00 Vertigo 434943288 R42 [id number] Rigo Galindo MD [facility] Internal Med [place] [address] [place] [address] [place] [address] 03/17/2024 11:45:56 03/17/2024 12:08:28 Vertebrobasilar ischemic vertigo 074006532 H81.09 Essential hypertension 07219112 I10 Hypercholesterolemia 136 72608 E78.00 [id number] Rigo Galindo MD [facility] Internal Med [facility] [address] [address] 09/05/2024 15:49:45 09/05/2024 16:19:21 Adult health examination 638277388 Z00.00 Depression screening 171 404660 Z13.31 Essential hypertension 31467706 I10 Hypercholesterolemia 136 67245 E78.00 Cervical radiculopathy 37415469 M54.12 Vitamin D deficiency 347 31231 E55.9 Health Concerns Section Related Observation LastModified by Organization Detai ls LastModified Time None Recorded Concern Status LastModified by Organization Details LastModified Time None Recorded Advance Directives Directive None Recorded Payers Encounter Date Sequence Insurance Name Policy Number Policy Pérez Covered Member ID Pérez Member ID Guarantor Name 07/07/2023 1 [id number] Austin Watters [id number] Sanna Watters 11/12/2023 1 [place] [id number] Austin Watters [id number] Sanna Watters 03/03/2024 1 [place] [id number] Austin Watters [id number] Sanna Watters 03/17/2024 1 [place] [id number] Austin Watters [id number] Sanna Watters 09/05/2024 1 [place] [id number] Austin Watters [id number] Sanna Watters Notes Date Note Type Note Provider Name and Address Organization Details Recorded Time 3 text/html Patient Name: Sanna WattersDate Of Service: Thursday ( 03.23.2023 ): 1965 Age: 58 Vital Signs:Blood Pressure: Sitting Rt. Arm 182/100Pulse: Sitting 73 /min and RegularRespiratory Rate: 12Height 67 in or 1.7 mWeight 141 lb or 64.0 kgBMI 22.1Temperature: 97 F or 36.1 CPulse Oximetry: 97 % at rest on no oxygen Chief Complaint: Essential hypertension Problems or conditions discussed in the HPI were the only ones reviewed during the encounter.Only social and family history addressed in the HPI were reviewed during this encounter. Attendant(s): NoneConstitutional and Systemic Symptoms:none Medication Reconciliation: by patient. History of Present Illness #1. The patient is in for a well new patient examination. No complaints of any chronic problems. See former diagnoses and review of systems listed below. Has had problems recently with generalized feeling of fatigue some mild shortness of breath. As well as occasional palpitations. Family history of vascular disease. History of any previous problems. Last cholesterol some three or four years ago was 224 HDL of 105 LDL of 111. Blood pressure today is quite elevated 182/100. #2. Essential Hypertension: Stage: Stage I Interval Neurological Complaints headaches and Fatigue and some shortness of breath. No shortness of breath, orthopnea or cardiovascular symptoms. No other symptoms related to end organ damage. Pressure has been under poor control. Currently elevated and instructed to recheck in office in two weeks. No other end organ symptoms or findings. Therapy reviewed regarding management of hypertension and includes salt restriction and Starting on some losartan 50 mg once daily and recheck blood pressure in two weeks.Medication List Reviewed and Reconciled 03/23/2023Losartan Potassium 50 MG TABLET One DailySocial HistorySOCIAL HISTORY:Does not smoke cigarettes. Drinking Hx: < 6 cans of soft drinks per day.Exercise: RegularlySexual Hx: Sexually ActiveOccupation: Office WorkerTravel Hx: [place]Family HistoryFAMILY HISTORY:Mother Living 82 years oldFather Living 85years old1 Brothers 1 Living2 Sisters 2 LivingMother Hx: HTNFather HTN,Cholesterol,CS Venous InsufficiencyMenarche 13 Menopause A0 Rigo Galindo MD [address] [address], [place], [address], [facility] [employer] [facility] 07/07/2023 10:59:43 4 text/html Patient Name: Sanna Springerte Of Service: October ( 11.12.2023 ): 1965 Age: 58 There has been approximately a 9 lb weight gain since 03/23/2023. This represents approximately a 6.4% change in weight. Weight change attributable to lifestyle changes. Vital Signs:Blood Pressure: Sitting Rt. Arm 128/82Pulse: Sitting 76 /min and RegularRespiratory Rate: 12Height 66 in or 1.7 mWeight 150 lb or 68.0 kgBMI 24.2Temperature: 97.2 F or 36.2 CPulse Oximetry: 99 % at rest on no oxygen Chief Complaint: Addressed in HPI Problems or conditions discussed in the HPI were the only ones reviewed during the encounter.Only social and family history addressed in the HPI were reviewed during this encounter. Attendant(s): NoneConstitutional and Systemic Symptoms:none Medication Reconciliation: from medication list. History of Present Illness #1. Essential Hypertension: Stage: Stage I Interval Neurological Complaints no headaches, dizziness, weakness, visual changes, ataxia, aphasia and apraxia. No shortness of breath, orthopnea or cardiovascular symptoms. No other symptoms related to end organ damage. Pressure has been under excellent control. Currently normal. No other end organ symptoms or findings. Therapy reviewed regarding management of hypertension and includes salt restriction and Chlorthalidone and Losartan Potassium. Active Medication ListLosartan Potassium 100 MG TABLET One DailyChlorthalidone 25 MG TABLET One Daily Social HistorySOCIAL HISTORY:Does not smoke cigarettes. Drinking Hx: < 6 cans of soft drinks per day.Exercise: RegularlySexual Hx: Sexually ActiveOccupation: Office WorkerTravel Hx: [place] Family HistoryFAMILY HISTORY:Mother Living 82 years oldFather Living 85years old1 Brothers 1 Living2 Sisters 2 LivingMother Hx: HTNFather HTN,Cholesterol,CS Venous InsufficiencyMenarche 13 Menopause A0 Rigo Galindo MD [address], [address], [place] [facility] [employer] [facility] 11/12/2023 10:45:41 4 text/html Patient Name: Sanna Lucero Of Service: February ( 03.03.2024 ): 1965 Age: 58 There has been approximately a 2 lb weight gain since 11/12/2023. This represents approximately a 1.3% change in weight. Weight change attributable to lifestyle changes. Vital Signs:Blood Pressure: Sitting Rt. Arm 122/82Pulse: Sitting 81 /min and RegularRespiratory Rate: 12Height 67 in or 1.7 mWeight 152 lb or 68.9 kgBMI 23.8Temperature: 97.2 F or 36.2 CPulse Oximetry: 98 % at rest on no oxygen Chief Complaint: Addressed in HPI Problems or conditions discussed in the HPI were the only ones reviewed during the encounter.Only social and family history addressed in the HPI were reviewed during this encounter. Attendant(s): NoneConstitutional and Systemic Symptoms:none Medication Reconciliation: from medication list. History of Present Illness #1. Essential Hypertension: Stage: Stage I Interval Neurological Complaints no headaches, dizziness, weakness, visual changes, ataxia, aphasia and apraxia. No shortness of breath, orthopnea or cardiovascular symptoms. No other symptoms related to end organ damage. Pressure has been under excellent control. Currently normal. No other end organ symptoms or findings. Therapy reviewed regarding management of hypertension and includes salt restriction and Chlorthalidone and Losartan Potassium. #2. Type II Hypercholesterolaemia: Currently Was recently placed on atorvastatin 80 mg once daily in the emergency room. A allegedly for possible TIA or stroke.. No interval complaints of any muscle pain or arthralgia. No significant liver changes with medications. Last lipid panel: no testing done recently. Therapy reviewed regarding treatment of cholesterol management and include diet and Atorvastatin Calcium. #3. Playing vertigo. Apparently went to the emergency room. Apparently had extensive evaluation done there. We do not have any the results from there. Was told that she had some partial blockage in the neck although there is nothing on her discharge summary from the emergency room on her records suggest any major blockage.: Active Medication ListAspirin 81 MG CAPSULE One [...] 13 Menopause A0 Rigo Galindo MD [address] [facility], [facility] [address], [place], [address], [facility] [employer] 03/03/2024 17:15:00 4 text/html Patient Name: Sanna Lucero Of Service: February ( 03.17.2024 ): 1965 Age: 58 There has been approximately a 4 lb weight gain since 03/03/2024. This represents approximately a 2.6% change in weight. Weight change attributable to lifestyle changes. Vital Signs:Blood Pressure: Sitting Rt. Arm 118/74Pulse: Sitting 78 /min and RegularRespiratory Rate: 12Height 67 in or 1.7 mWeight 156 lb or 70.8 kgBMI 24.4Temperature: 97.9 F or 36.6 CPulse Oximetry: 98 % at rest on no oxygen Chief Complaint: Addressed in HPI Problems or conditions discussed in the HPI were the only ones reviewed during the encounter.Only social and family history addressed in the HPI were reviewed during this encounter. Attendant(s): NoneConstitutional and Systemic Symptoms:none Medication Reconciliation: from medication list. History of Present Illness #1. Recent hospitalization for the persistent vertigo. 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 Other not this is a form of vertebrobasilar insufficiency with associated vertigo or whether not the vertigo may be of labyrinth origin. The patient has been on aspirin and Plavix and is doing well. Has had no recurrent attacks. In the process of trying to get the patient set up with Neurology for further evaluation for vertebrobasilar insufficiency.: #2. Essential Hypertension: Stage: Stage I Interval Neurological Complaints no headaches, dizziness, weakness, visual changes, ataxia, aphasia and apraxia. No shortness of breath, orthopnea or cardiovascular symptoms. No other symptoms related to end organ damage. Pressure has been under excellent control. Currently normal. No other end organ symptoms or findings. Therapy reviewed regarding management of hypertension and includes salt restriction and Chlorthalidone and Losartan Potassium. #3. Type II Hypercholesterolaemia: Currently taking medication and tolerating well. No interval complaints of any muscle pain or arthralgia. No significant liver changes with medications. Last lipid panel: excellent control. Therapy reviewed regarding treatment of cholesterol management and include diet and Atorvastatin Calcium. Active Medication ListAspirin 81 MG CAPSULE One [...] 13 Menopause A0 Rigo Galindo MD [address] [facility], [address], [place], [address], [facility] [employer] [facility] 03/17/2024 12:04:41 4 text/html Patient Name: Sanna Lucero Of Service: Thursday ( 09.05.2024 ): 1965 [...] 13 Menopause A0 Rigo Galindo MD [address] [facility], [facility] [address], [place], [address], [facility] [employer] 09/05/2024 16:15:27 OBGyn Episode No OBEpisode recorded.
--- OUTSIDE RECORDS SUMMARY | 2024-09-27 02:25 | XMS_ITS | Encounter Summary ---
Author Organization [facility] Address [address] [place] [address] Care Team Providers Care Hyperbaric Technician Name Role Phone Unavailable Primary Care Provider Unavailabl e Encounter Details Date Type Department Care Team (Latest Contact Info) Description 09/07/2000 Outpatient Historical [facility] Conversion, History Supervision of other normal (Primary Dx) Social History Tobacco Use Types Packs/Day Years Used Date Smoking Tobacco: Never Assessed Sex and Gender Information Value Date Recorded Sex Assigned at Not on file Gender Identity Not on file Sexual Orientation Not on file documented as of this encounter Plan of Treatment Not on file documented as of this encounter Visit Diagnoses Diagnosis Supervision of other normal - Primary documented in this encounter
--- OUTSIDE RECORDS SUMMARY | 2024-09-27 02:25 | XMS_ITS | Clinical Summary ---
Author Organization [facility] Address [address] [facility] Attn: Epic Prelude ADT JEANNIE HOOKER [address] Care Team Providers Care Patternmaker Plastics Name Role Phone Unavailable Primary Care Provider Unavailabl e Social History Tobacco Use Types Packs/Day Years Used Date Smoking Tobacco: Never Assessed Sex and Gender Information Value Date Recorded Sex Assigned at Not on file Gender Identity Not on file Sexual Orientation Not on file Plan of Treatment Health Maintenance Due Date Last Done Comments DTAP/TDAP/TD VACCINES (1 - Tdap) 1984 HEPATITIS B VACCINES (1 of 3 - 19+ 3-dose series) 1984 CERVICAL CANCER SCREENING 1995 BREAST CANCER SCREENING 2005 COLORECTAL SCREENING 2010 Colorectal Cancer Screening 2010 FIT-DNA Q 3 years 2010 FIT/FOBT Q 1 year 2010 Flex Sig/CT Colonography Q 5 years 2010 ZOSTER VACCINE (1 of 2) 2015 INFLUENZA VACCINE (#1) 2024 PNEUMOCOCCAL VACCINE 0-64 YEARS Aged Out No longer eligible based on patient's age to complete this topic
--- OUTSIDE RECORDS SUMMARY | 2024-09-27 03:56 | XMS_ITS | Clinical Summary ---
Author Organization [facility] Address [address] [facility] Attn: Epic Prelude ADT JEANNIE HOOKER [address] Care Team Providers Care Knowledge Engineer Name Role Phone Unavailable Primary Care Provider [...]
--- OUTSIDE RECORDS SUMMARY | 2024-09-27 03:56 | XMS_ITS | Encounter Summary ---
Author Organization [facility] Address [address] [place] [address] Care Team Providers Care Crop Farm Helper Name Role Phone Unavailable Primary Care Provider [...]
== END 2024-09-20 12:50 | disposition home or self-care (01) ==
PROVIDERS: Emergency Medicine; Emergency Provider Student in an Organized Health Care Education/Training Program; PCP Internal Medicine
DX: R10.9 Unspecified abdominal pain (principal); R73.9 Hyperglycemia, unspecified; R74.01 Elevation of levels of liver transaminase levels; E87.6 Hypokalemia; M47.816 Spondylosis without myelopathy or radiculopathy, lumbar region; I10 Essential (primary) hypertension
CPT/HCPCS: 36415; 72131; 74176; 80053; 81003; 83690; 83735; 85025; 96365; 96366; 96375; 99284; A9270; J1171; J1885; J3480